=== PATIENT | male | born 1950 | race Caucasian/White ===

== ENCOUNTER 2018-06-19 23:50 | Inpatient (IN) | payer MEDICARE ==
[~2018-06-19] VITALS: Ht 188 cm; Wt 68.8 kg
--- NOTE | ~2018-06-19 | OP ---
PATIENT NAME: LYNN LOPEZ MEDICAL RECORD: [id number] :54 LOCATION:D. 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 PROCEDURE: Incisional biopsy of an infected fungating penile mass. SURGEON: Jossie Davis MD MANAGER CALL CENTER: None. BLOOD LOSS: Minimal. ANESTHESIA: General. COMPLICATIONS: None. The risks, possible complications, and alternatives to procedure were explained to the patient. He elects to proceed. 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 Dr. Ziegler is currently out of town. I want to get an incisional biopsy so that Dr. Ziegler can develop a plan of care for this patient when he returns. OPERATIVE COURSE: The patient was conveyed to the operating room electively on 06/24/2018. General anesthesia was induced by the anesthesia staff. The perineum was sterilely prepped and draped. We used the micro filter suction as well as the special laser masks during this procedure. There was a rind over this fungating mass. When this rind was compressed, there were dozens of small pustules that ruptured. This rind then pulled off. Underneath that there was a fleshy material that appeared to be a malignancy. I took 10 blade and then shaved off a portion of this mass. Hemostasis was achieved with electrocautery as well as with a topical hemostatic agent. A sterile dressing was applied. The patient was then extubated and conveyed to the post-anesthesia care unit where he was in stable condition. TRANSINT:[id number] Voice Confirmation ID: [id number] DOCUMENT ID: [id number] JOSSIE DAVIS MD at 1708 CC: BERTO PANG MD, JOSSIE ZIEGLER MD and Tabatha MACK [phone] DICTATION DATE: 06/24/18 1401 LINUX NETWORK ADMINISTRATOR: 06/24/18 1415 DIS IN 06/26/18 [id number] [place] [address]
--- NOTE | ~2018-06-19 | MORECARE ---
CASE MANAGEMENT DISCHARGE SUMMARY PATIENT: LYNN LOPEZ UNIT: [id number] ADM DATE: 06/20/18 AGE: 68 : 54 SEX: M ROOM/BED: D.2109 AUTHOR: CHETANDOC PHYSICIAN: REFERRING PHYSICIAN: BERTO PANG MD DATE OF SERVICE: 06/23/18 Discharge Plan Patient Name: LYNN LOPEZ Facility: [facility]:[place] : 1950 Planned Disposition: Home Anticipated Discharge Date: 06/23/18 Discharge Date: Expected LOS: 3 Initial Reviewer: [email or web address] Initial Review Date: 06/22/2018 Generated: 06/23/18 3:40 pm Comments DCP- Discharge Planning Updated by [id number]: Audrey Vigil on 06/23/18 1:[address] Patient Name: LYNN LOPEZ Admission Status: Elective Accout number: [id number] Admission Date: 06-20-2018 : 1950 Admission Diagnosis:HEMATURIA, UNSPECIFIED Attending: BERTO PANG Current LOS: 3 Anticipated DC Date: 06-23-2018 Planned Disposition: Home Primary Insurance: MEDICARE A & B Discharge Planning Comments: CM SPOKE WITH PATIENT ABOUT HH FOR MANAGEMENT OF REYNA CATH. PATIENT CHOSE [facility] IN [place]. DOCUMENTS FAXED TO LOKI AT [employer] AT [phone]. WHEN PATIENT IS DISCHARGED, NURSE OR CM TO CALL [facility] AT [phone] TO LET THEM KNOW. ALSO, FAX DC DOCUMENTS AND DC SUMMARY TO [employer]. Abstract Writer: Audrey Vigil DCP- Discharge Planning Updated by [email or web address]: Leonel Nuñez on 06/22/18 10:[address] Patient Name: LYNN LOPEZ Admission Status: Elective Accout number: [id number] Admission Date: 06-20-2018 : 1950 Admission Diagnosis: Attending: BERTO PANG Current LOS: 2 Anticipated DC Date: 06-23-2018 Planned Disposition: Home Primary Insurance: MEDICARE A & B Discharge Planning Comments: * Is the patient Alert and Oriented? Yes 0 * How many steps to enter\exit or inside your home? 2 0 * PCP DR. JONES IN [place] 0 * Pharmacy [facility] 0 * Preadmission Environment Home Alone 0 * ADLs Independent 0 * Equipment Cane 0 * Other Equipment NO MEDICAL EQUIPMENT PROVIDER PREFERENCE 0 * List name and contact numbers for known caregivers / representatives who currently or will assist patient after discharge: COLIN LOPEZ, EX , CALEB LOPEZ, SON, 0 * Verbal permission to speak to the caregivers and representatives has been obtained from the patient. N/A 0 * Community resources currently utilized None 0 * Please name any agencies selected above. NONE 0 * Additional services required to return to the preadmission environment? No 0 * Can the patient safely return to the preadmission environment? Yes 0 * Has this patient been hospitalized within the prior 30 days at any hospital? No 0 CM MET WITH PT IN ROOM TO DISCUSS DISCHARGE PLANNING AND NEEDS. PT REPORTS LIVING AT HOME INDEPENDENTLY AND ALONE. PT HAS A HAND MADE WOOD CANE WITH NO MEDICAL EQUIPMENT PROVIDER PREFERENCE. PT HAS NO OUTSIDE SERVICES ASSISTING IN THE HOME. CM DISCUSSED AVAILABILITY OF HOME HEALTH, REHAB SERVICES AND MEDICAL EQUIPMENT. PT DENIES DISCHARGE NEEDS, REPORTS HIS SON WILL PICK HIM UP FOR DISCHARGE HOME. IMPORTANT MESSAGE FROM MEDICARE PROVIDED AND EXPLAINED. PT PLANS TO DISCHARGE HOME ALONE. SON TO TRANSPORT HOME. PT DENIES DISCHARGE NEEDS AT THIS TIME. CM TO FOLLOW AND ASSIST IF NEEDED. Abstract Writer: [facility] Nu[facility]ez [facility] - [facility]charge Planning Initial Assessment Updated by [email or web address]: Leonel Nuñez on 06/22/18 11:25 am * Is the patient Alert and Oriented? Yes * How many steps to enter\exit or inside your home? * PCP DR. JONES IN [place] * Pharmacy [facility] * Preadmission Environment Home Alone * ADLs Independent * Equipment Cane * Other Equipment NO MEDICAL EQUIPMENT PROVIDER PREFERENCE * List name and contact numbers for known caregivers / representatives who currently or will assist patient after discharge: COLIN LOPEZ, EX , CALEB LOPEZ, SON, * Verbal permission to speak to the caregivers and representatives has been obtained from the patient. N/A * Community resources currently utilized None * Please name any agencies selected above. NONE * Additional services required to return to the preadmission environment? No * Can the patient safely return to the preadmission environment? Yes * Has this patient been hospitalized within the prior 30 days at any hospital? No Coverage Notice Reviewer: [id number] - Leonel Nuñez Notice Issued Date-Time: 06/22/2018 10:25 Notice Type: IM Discharge Notice Notice Delivered To: Patient Relationship to Patient: Pricing Coordinator Name: Delivery Method: HAND - Hand Delivered Steph Days: Prior Verbal Notification: Recipient Understood Notice: Yes Recipient Signature: Yes Med Rec Note Co-signed by Attending: Coverage Notice Comment: Reviewer: [id number] - Audrey Vigil Notice Issued Date-Time: 06/23/2018 14:04 Notice Type: Patient Choice Letter Notice Delivered To: Patient Relationship to Patient: Self Pricing Coordinator Name: Delivery Method: PHONE - Phone Steph Days: Prior Verbal Notification: Recipient Understood Notice: Yes Recipient Signature: Med Rec Note Co-signed by Attending: Coverage Notice Comment: PATIENT CHOSE [facility] IN [place], PHONE [phone] FAX: [phone] ATTN: LOKI Francis DP export: 06/23/18 1:21 Patient Name: LYNN LOPEZ Page [id number] at 1441 All edits/amendments must be made on the electronic document DICTATION DATE: 06/23/18 1440 UPPER INSPECTOR: LEORA 06/23/18 1440 RPT#: [id number] DC DATE: STATUS: ADM IN [facility] [address] [place] [address] END OF REPORT
--- NOTE | ~2018-06-19 | MORECARE ---
CASE MANAGEMENT DISCHARGE SUMMARY PATIENT: LYNN LOPEZ UNIT: [id number] ADM DATE: 06/20/18 AGE: 68 : 54 SEX: M ROOM/BED: D.2109 AUTHOR: CHETANDOC PHYSICIAN: REFERRING PHYSICIAN: BERTO PANG MD DATE OF SERVICE: 06/23/18 Discharge Plan Patient Name: LYNN LOPEZ Facility: [facility]:[place] : 1950 Planned Disposition: Home Anticipated Discharge Date: 06/23/18 Discharge Date: Expected LOS: 3 Initial Reviewer: [email or web address] Initial Review Date: 06/22/2018 Generated: 06/23/18 3:21 pm Comments DCP- Discharge Planning Updated by [email or web address]: Leonel Nuñez on 06/22/18 10:[address] Patient Name: LYNN LOPEZ Admission Status: Elective Accout number: [id number] Admission Date: 06-20-2018 : 1950 Admission Diagnosis: Attending: BERTO PANG Current LOS: 2 Anticipated DC Date: 06-23-2018 Planned Disposition: Home Primary Insurance: MEDICARE A & B Discharge Planning Comments: * Is the patient Alert and Oriented? Yes 0 * How many steps to enter\exit or inside your home? 2 0 * PCP DR. JONES IN [place] 0 * Pharmacy [facility] 0 * Preadmission Environment Home Alone 0 * ADLs Independent 0 * Equipment Cane 0 * Other Equipment NO MEDICAL EQUIPMENT PROVIDER PREFERENCE 0 * List name and contact numbers for known caregivers / representatives who currently or will assist patient after discharge: COLIN LOPEZ, EX , CALEB LOPEZ, SON, 0 * Verbal permission to speak to the caregivers and representatives has been obtained from the patient. N/A 0 * Community resources currently utilized None 0 * Please name any agencies selected above. NONE 0 * Additional services required to return to the preadmission environment? No 0 * Can the patient safely return to the preadmission environment? Yes 0 * Has this patient been hospitalized within the prior 30 days at any hospital? No 0 CM MET WITH PT IN ROOM TO DISCUSS DISCHARGE PLANNING AND NEEDS. PT REPORTS LIVING AT HOME INDEPENDENTLY AND ALONE. PT HAS A HAND MADE WOOD CANE WITH NO MEDICAL EQUIPMENT PROVIDER PREFERENCE. PT HAS NO OUTSIDE SERVICES ASSISTING IN THE HOME. CM DISCUSSED AVAILABILITY OF HOME HEALTH, REHAB SERVICES AND MEDICAL EQUIPMENT. PT DENIES DISCHARGE NEEDS, REPORTS HIS SON WILL PICK HIM UP FOR DISCHARGE HOME. IMPORTANT MESSAGE FROM MEDICARE PROVIDED AND EXPLAINED. PT PLANS TO DISCHARGE HOME ALONE. SON TO TRANSPORT HOME. PT DENIES DISCHARGE NEEDS AT THIS TIME. CM TO FOLLOW AND ASSIST IF NEEDED. Caustic Operator: Leonel Nuñez [facility]CP[facility] - Discharge Planning Initial Assessment Updated by [id number]: Leonel Nuñez on 06/22/18 11:25 am * Is the patient Alert and Oriented? Yes * How many steps to enter\exit or inside your home? * PCP DR. JONES IN [place] * Pharmacy [facility] * Preadmission Environment Home Alone * ADLs Independent * Equipment Cane * Other Equipment NO MEDICAL EQUIPMENT PROVIDER PREFERENCE * List name and contact numbers for known caregivers / representatives who currently or will assist patient after discharge: COLIN LOPEZ, EX , CALEB LOPEZ, SON, * Verbal permission to speak to the caregivers and representatives has been obtained from the patient. N/A * Community resources currently utilized None * Please name any agencies selected above. NONE * Additional services required to return to the preadmission environment? No * Can the patient safely return to the preadmission environment? Yes * Has this patient been hospitalized within the prior 30 days at any hospital? No External Providers External Provider: OTHER-OTHER Next Contact Date: Service Request Date: Service Type: Resolution: Reviewer: Comments: Coverage Notice Reviewer: [id number] - Leonel Nuñez Notice Issued Date-Time: 06/22/2018 10:25 Notice Type: IM Discharge Notice Notice Delivered To: Patient Relationship to Patient: Corrosion Control Fitter Name: Delivery Method: HAND - Hand Delivered Steph Days: Prior Verbal Notification: Recipient Understood Notice: Yes Recipient Signature: Yes Med Rec Note Co-signed by Attending: Coverage Notice Comment: Reviewer: [id number] - Audrey Vigil Notice Issued Date-Time: 06/23/2018 14:04 Notice Type: Patient Choice Letter Notice Delivered To: Patient Relationship to Patient: Self Corrosion Control Fitter Name: Delivery Method: PHONE - Phone Steph Days: Prior Verbal Notification: Recipient Understood Notice: Yes Recipient Signature: Med Rec Note Co-signed by Attending: Coverage Notice Comment: PATIENT CHOSE [facility] IN [place], PHONE [phone] FAX: [phone] ATTN: LOKI GIBSON export: 06/22/18 10:31 Patient Name: LYNN LOPEZ Page [id number] at 1422 All edits/amendments must be made on the electronic document DICTATION DATE: 06/23/181420 STAMPING DIE MAKER: LEORA 06/23/181420 RPT#: [id number] DC DATE: STATUS: ADM IN [facility] [address] [place] [address] END OF REPORT
--- NOTE | ~2018-06-19 | MORECARE ---
CASE MANAGEMENT DISCHARGE SUMMARY PATIENT: LYNN LOPEZ UNIT: [id number] ADM DATE: 06/20/18 AGE: 68 : 54 SEX: M ROOM/BED: D.2109 AUTHOR: CHETANDOC PHYSICIAN: REFERRING PHYSICIAN: BERTO PANG MD DATE OF SERVICE: 06/23/18 Discharge Plan Patient Name: LYNN LOPEZ Facility: [facility]:[place] : 1950 Planned Disposition: Home with Home Health Anticipated Discharge Date: 06/23/18 Discharge Date: Expected LOS: 3 Initial Reviewer: [email or web address] Initial Review Date: 06/22/2018 Generated: 06/23/18 3:50 pm Comments DCP- Discharge Planning Updated by [id number]: Audrey Vigil on 06/23/18 1:[address] Patient Name: LYNN LOPEZ Admission Status: Elective Accout number: [id number] Admission Date: 06-20-2018 : 1950 Admission Diagnosis:HEMATURIA, UNSPECIFIED Attending: BERTO PANG Current LOS: 3 Anticipated DC Date: 06-23-2018 Planned Disposition: Home Primary Insurance: MEDICARE A & B Discharge Planning Comments: CM SPOKE WITH PATIENT ABOUT HH FOR MANAGEMENT OF REYNA CATH. PATIENT CHOSE [facility] HH IN [place]. DOCUMENTS FAXED TO LOKI AT [employer] AT [phone]. WHEN PATIENT IS DISCHARGED, NURSE OR CM TO CALL [facility] AT [phone] TO LET THEM KNOW. ALSO, FAX DC DOCUMENTS AND DC SUMMARY TO [employer]. Drum Drier: Audrey Vigil DCP- Discharge Planning Updated by [id number]: Leonel Nuñez on 06/22/18 10:[address] Patient Name: LYNN LOPEZ Admission Status: Elective Accout number: [id number] Admission Date: 06-20-2018 : 1950 Admission Diagnosis: Attending: BERTO PANG Current LOS: 2 Anticipated DC Date: 06-23-2018 Planned Disposition: Home Primary Insurance: MEDICARE A & B Discharge Planning Comments: * Is the patient Alert and Oriented? Yes 0 * How many steps to enter\exit or inside your home? 2 0 * PCP DR. JONES IN [place] 0 * Pharmacy [facility] 0 * Preadmission Environment Home Alone 0 * ADLs Independent 0 * Equipment Cane 0 * Other Equipment NO MEDICAL EQUIPMENT PROVIDER PREFERENCE 0 * List name and contact numbers for known caregivers / representatives who currently or will assist patient after discharge: COLIN LOPEZ, EX , CALEB LOPEZ, SON, 0 * Verbal permission to speak to the caregivers and representatives has been obtained from the patient. N/A 0 * Community resources currently utilized None 0 * Please name any agencies selected above. NONE 0 * Additional services required to return to the preadmission environment? No 0 * Can the patient safely return to the preadmission environment? Yes 0 * Has this patient been hospitalized within the prior 30 days at any hospital? No 0 CM MET WITH PT IN ROOM TO DISCUSS DISCHARGE PLANNING AND NEEDS. PT REPORTS LIVING AT HOME INDEPENDENTLY AND ALONE. PT HAS A HAND MADE WOOD CANE WITH NO MEDICAL EQUIPMENT PROVIDER PREFERENCE. PT HAS NO OUTSIDE SERVICES ASSISTING IN THE HOME. CM DISCUSSED AVAILABILITY OF HOME HEALTH, REHAB SERVICES AND MEDICAL EQUIPMENT. PT DENIES DISCHARGE NEEDS, REPORTS HIS SON WILL PICK HIM UP FOR DISCHARGE HOME. IMPORTANT MESSAGE FROM MEDICARE PROVIDED AND EXPLAINED. PT PLANS TO DISCHARGE HOME ALONE. SON TO TRANSPORT HOME. PT DENIES DISCHARGE NEEDS AT THIS TIME. CM TO FOLLOW AND ASSIST IF NEEDED. Drum Drier: [facility] Initial Assessment Updated by [email or web address]: Leonel Nuñez on 06/22/18 11:25 am * Is the patient Alert and Oriented? Yes * How many steps to enter\exit or inside your home? * PCP DR[facility] JONES IN [place] * [facility] * Preadmission Environment Home Alone * ADLs Independent * Equipment Cane * Other Equipment NO MEDICAL EQUIPMENT PROVIDER PREFERENCE * List name and contact numbers for known caregivers / representatives who currently or will assist patient after discharge: COLIN LOPEZ, EX , CALEB LOPEZ, SON, * Verbal permission to speak to the caregivers and representatives has been obtained from the patient. N/A * Community resources currently utilized None * Please name any agencies selected above. NONE * Additional services required to return to the preadmission environment? No * Can the patient safely return to the preadmission environment? Yes * Has this patient been hospitalized within the prior 30 days at any hospital? No Coverage Notice Reviewer: [id number] - Leonel Nuñez Notice Issued Date-Time: 06/22/2018 10:25 Notice Type: IM Discharge Notice Notice Delivered To: Patient Relationship to Patient: Mortgage Loan Processor Name: Delivery Method: HAND - Hand Delivered Steph Days: Prior Verbal Notification: Recipient Understood Notice: Yes Recipient Signature: Yes Med Rec Note Co-signed by Attending: Coverage Notice Comment: Reviewer: [id number] - Audrey Vigil Notice Issued Date-Time: 06/23/2018 14:04 Notice Type: Patient Choice Letter Notice Delivered To: Patient Relationship to Patient: Self Mortgage Loan Processor Name: Delivery Method: PHONE - Phone Steph Days: Prior Verbal Notification: Recipient Understood Notice: Yes Recipient Signature: Med Rec Note Co-signed by Attending: Coverage Notice Comment: PATIENT CHOSE [facility] IN [place], PHONE [phone] FAX: [phone] ATTN: LOKI Francis DP export: 06/23/18 1:21 Patient Name: LYNN LOPEZ Page [id number] at 1450 All edits/amendments must be made on the electronic document DICTATION DATE: 06/23/18 1450 DISPATCHER RELAY: LEORA 06/23/18 1450 RPT#: [id number] DC DATE: STATUS: ADM IN [facility] [address] [place] [address] END OF REPORT
--- NOTE | ~2018-06-19 | MORECARE ---
CASE MANAGEMENT DISCHARGE SUMMARY PATIENT: LYNN LOPEZ UNIT: [id number] ADM DATE: 06/20/18 AGE: 68 : 52 SEX: M ROOM/BED: D.2106 AUTHOR: EMY BENTON PHYSICIAN: REFERRING PHYSICIAN: BERTO PANG MD DATE OF SERVICE: 06/26/18 Discharge Plan Patient Name: LYNN LOPEZ Facility: [facility]:[place] : 1950 Planned Disposition: Home with Home Health Anticipated Discharge Date: 06/26/18 Discharge Date: Expected LOS: 6 Initial Reviewer: [email or web address] Initial Review Date: 06/22/2018 Generated: 06/26/18 3:19 pm Comments DCP- Discharge Planning Updated by [id number]: Leonel Nuñez on 06/26/18 1:[address] Patient Name: LYNN LOPEZ Encounter No: [id number] : 1950 Primary Insurance: MEDICARE A & B Anticipated DC Date: 06-26-2018 Planned Disposition: Home with Home Health External Planned Provider: [facility] DCP follow-up note: CM RECEIVED DISCHARGE ORDER, MET WITH PT IN ROOM TO DISCUSS DISCHARGE NEEDS AND PLANNING. CM DISCUSSED AVAILABILITY OF HOME HEALTH, REHAB SERVICES AND MEDICAL EQUIPMENT. PT DENIES DISCHARGE NEEDS OTHER THAN HOME HEALTH DISCUSSED LAST WEEK. PT REPORTS HIS FRIEND IS HERE NOW TO TRANSPORT HOME, PT WANTS TO LEAVE NOW, NURSE NOTIFIED. IMPORTANT MESSAGE FROM MEDICARE PROVIDED AND EXPLAINED. CM CALLED [facility] IN [place], , SPOKE TO LOKI AND CONFIRMED PT IS DISCHARGING HOME TODAY, [facility] TO FOLLOW UP TOMORROW. CM FAXED DISCHARGE INFORMATION TO [facility] AT [phone]. PLATING EQUIPMENT TENDER NURSE NOTIFIED. SRINIVASAN Saenz DCP- Discharge Planning Updated by [id number]: Audrey Vigil on 06/23/18 1:[address] Patient Name: LYNN LOPEZ Admission Status: Elective Accout number: [id number] Admission Date: 06-20-2018 : 1950 Admission Diagnosis:HEMATURIA, UNSPECIFIED Attending: BERTO PANG Current LOS: 3 Anticipated DC Date: 06-23-2018 Planned Disposition: Home Primary Insurance: MEDICARE A & B Discharge Planning Comments: CM SPOKE WITH PATIENT ABOUT HH FOR MANAGEMENT OF REYNA CATH. PATIENT CHOSE [facility] IN [place]. DOCUMENTS FAXED TO LOKI AT [employer] AT [phone]. WHEN PATIENT IS DISCHARGED, NURSE OR CM TO CALL CHRISTINA AT [phone] TO LET THEM KNOW. ALSO, FAX DC DOCUMENTS AND DC SUMMARY TO [employer]. Hand Bander: Audrey Vigil DCP- Discharge Planning Updated by [id number]: Leonel Nuñez on 06/22/18 10:[address] Patient Name: LYNN LOPEZ Admission Status: Elective Accout number: [id number] Admission Date: 06-20-2018 : 1950 Admission Diagnosis: Attending: BERTO PANG Current LOS: 2 Anticipated DC Date: 06-23-2018 Planned Disposition: Home Primary Insurance: MEDICARE A & B Discharge Planning Comments: * Is the patient Alert and Oriented? Yes 0 * How many steps to enter\exit or inside your home? 2 0 * PCP DR. JONES IN [place] 0 * Pharmacy [facility] 0 * Preadmission Environment Home Alone 0 * ADLs Independent 0 * Equipment Cane 0 * Other Equipment NO MEDICAL EQUIPMENT PROVIDER PREFERENCE 0 * List name and contact numbers for known caregivers / representatives who currently or will assist patient after discharge: COLIN LOPEZ, EX , CALEB LOPEZ, SON, 0 * Verbal permission to speak to the caregivers and representatives has been obtained from the patient. N/A 0 * Community resources currently utilized None 0 * Please name any agencies selected above. NONE 0 * Additional services required to return to the preadmission environment? No 0 * Can the patient safely return to the preadmission environment? Yes 0 * Has this patient been hospitalized within the prior 30 days at any hospital? No 0 CM MET WITH PT IN ROOM TO DISCUSS DISCHARGE PLANNING AND NEEDS. PT REPORTS LIVING AT HOME INDEPENDENTLY AND ALONE. PT HAS A HAND MADE WOOD CANE WITH NO MEDICAL EQUIPMENT PROVIDER PREFERENCE. PT HAS NO OUTSIDE SERVICES ASSISTING IN THE HOME. CM DISCUSSED AVAILABILITY OF HOME HEALTH, REHAB SERVICES AND MEDICAL EQUIPMENT. PT DENIES DISCHARGE NEEDS, REPORTS HIS SON WILL PICK HIM UP FOR DISCHARGE HOME. IMPORTANT MESSAGE FROM MEDICARE PROVIDED AND EXPLAINED. PT PLANS TO DISCHARGE HOME ALONE. SON TO TRANSPORT HOME. PT DENIES DISCHARGE NEEDS AT THIS TIME. CM TO FOLLOW AND ASSIST IF NEEDED. Hand Bander: Leonel Nuñez DCPIA - Discharge Planning Initial Assessment Updated by [email or web address]: Leonel Nuñez on 06/22/18 11:25 am * Is the patient Alert and Oriented? Yes * How many steps to enter\exit or inside your home? * PCP DR. JONES IN [place] * Pharmacy [facility] * Preadmission Environment Home Alone * ADLs Independent * Equipment Cane * Other Equipment NO MEDICAL EQUIPMENT PROVIDER PREFERENCE * List name and contact numbers for known caregivers / representatives who currently or will assist patient after discharge: COLIN LOPEZ, EX , CALEB LOPEZ, SON, * Verbal permission to speak to the caregivers and representatives has been obtained from the patient. N/A * Community resources currently utilized None * Please name any agencies selected above. NONE * Additional services required to return to the preadmission environment? No * Can the patient safely return to the preadmission environment? Yes * Has this patient been hospitalized within the prior 30 days at any hospital? No Coverage Notice Reviewer: [id number] Alejandrina Nuñez Notice Issued Date-Time: 06/22/2018 10:25 Notice Type: IM Discharge Notice Notice Delivered To: Patient Relationship to Patient: Altitude Chamber Technician Name: Delivery Method: HAND - Hand Delivered Steph Days: Prior Verbal Notification: Recipient Understood Notice: Yes Recipient Signature: Yes Med Rec Note Co-signed by Attending: Coverage Notice Comment: Reviewer: [id number] Alejandrina Vigil Notice Issued Date-Time: 06/23/2018 14:04 Notice Type: Patient Choice Letter Notice Delivered To: Patient Relationship to Patient: Self Altitude Chamber Technician Name: Delivery Method: PHONE - Phone Steph Days: Prior Verbal Notification: Recipient Understood Notice: Yes Recipient Signature: Med Rec Note Co-signed by Attending: Coverage Notice Comment: PATIENT CHOSE [facility] IN [place], PHONE [phone] FAX: [phone] ATTN: LOKI Reviewer: [email or web address] Alejandrina Nuñez Notice Issued Date-Time: 06/26/2018 12:25 Notice Type: IM Discharge Notice Notice Delivered To: Patient Relationship to Patient: Altitude Chamber Technician Name: Delivery Method: HAND - Hand Delivered Steph Days: Prior Verbal Notification: Recipient Understood Notice: Yes Recipient Signature: Med Rec Note Co-signed by Attending: Coverage Notice Comment: PT NOT WASHED HANDS, UNABLE TO SIGN Last DP export: 06/26/18 1:11 Patient Name: LYNN LOPEZ Page [id number] at 1419 All edits/amendments must be made on the electronic document DICTATION DATE: 06/26/181417 INSURANCE PRODUCER: LEORA 06/26/181417 RPT#: [id number] DC DATE: STATUS: ADM IN [facility] [address] [place] [address] END OF REPORT
--- NOTE | ~2018-06-19 | MORECARE ---
CASE MANAGEMENT DISCHARGE SUMMARY PATIENT: LYNN LOPEZ UNIT: [id number] ADM DATE: 06/20/18 AGE: 68 : 52 SEX: M ROOM/BED: D.2109 AUTHOR: CHETANDOC PHYSICIAN: REFERRING PHYSICIAN: BERTO PANG MD DATE OF SERVICE: 06/26/18 Discharge Plan Patient Name: LYNN LOPEZ Facility: [facility]:[place] : 1950 Planned Disposition: Home with Home Health Anticipated Discharge Date: 06/26/18 Discharge Date: Expected LOS: 6 Initial Reviewer: [email or web address] Initial Review Date: 06/22/2018 Generated: 06/26/18 3:11 pm Comments DCP- Discharge Planning Updated by [email or web address]: Audrey Vigil on 06/23/18 1:[address] Patient Name: LYNN LOPEZ Admission Status: Elective Accout number: [id number] Admission Date: 06-20-2018 : 1950 Admission Diagnosis:HEMATURIA, UNSPECIFIED Attending: BERTO PANG Current LOS: 3 Anticipated DC Date: 06-23-2018 Planned Disposition: Home Primary Insurance: MEDICARE A & B Discharge Planning Comments: CM SPOKE WITH PATIENT ABOUT HH FOR MANAGEMENT OF REYNA CATH. PATIENT CHOSE [facility] HH IN [place]. DOCUMENTS FAXED TO LOKI AT [employer] AT [phone]. WHEN PATIENT IS DISCHARGED, NURSE OR CM TO CALL [facility] AT [phone] TO LET THEM KNOW. ALSO, FAX DC DOCUMENTS AND DC SUMMARY TO [employer]. Carpentry Professional: Audrey Vigil DCP- Discharge Planning Updated by [id number]: Leonel Nuñez on 06/22/18 10:[address] Patient Name: LYNN LOPEZ Admission Status: Elective Accout number: [id number] Admission Date: 06-20-2018 : 1950 Admission Diagnosis: Attending: BERTO PANG Current LOS: 2 Anticipated DC Date: 06-23-2018 Planned Disposition: Home Primary Insurance: MEDICARE A & B Discharge Planning Comments: * Is the patient Alert and Oriented? Yes 0 * How many steps to enter\exit or inside your home? 2 0 * PCP DR[facility] JONES IN [place] 0 * Pharmacy [facility] 0 * Preadmission Environment Home Alone 0 * ADLs Independent 0 * Equipment Cane 0 * Other Equipment NO MEDICAL EQUIPMENT PROVIDER PREFERENCE 0 * List name and contact numbers for known caregivers / representatives who currently or will assist patient after discharge: COLIN LOPEZ, EX , CALEB LOPEZ, SON, 0 * Verbal permission to speak to the caregivers and representatives has been obtained from the patient. N/A 0 * Community resources currently utilized None 0 * Please name any agencies selected above. NONE 0 * Additional services required to return to the preadmission environment? No 0 * Can the patient safely return to the preadmission environment? Yes 0 * Has this patient been hospitalized within the prior 30 days at any hospital? No 0 CM MET WITH PT IN ROOM TO DISCUSS DISCHARGE PLANNING AND NEEDS. PT REPORTS LIVING AT HOME INDEPENDENTLY AND ALONE. PT HAS A HAND MADE WOOD CANE WITH NO MEDICAL EQUIPMENT PROVIDER PREFERENCE. PT HAS NO OUTSIDE SERVICES ASSISTING IN THE HOME. CM DISCUSSED AVAILABILITY OF HOME HEALTH, REHAB SERVICES AND MEDICAL EQUIPMENT. PT DENIES DISCHARGE NEEDS, REPORTS HIS SON WILL PICK HIM UP FOR DISCHARGE HOME. IMPORTANT MESSAGE FROM MEDICARE PROVIDED AND EXPLAINED. PT PLANS TO DISCHARGE HOME ALONE. SON TO TRANSPORT HOME. PT DENIES DISCHARGE NEEDS AT THIS TIME. CM TO FOLLOW AND ASSIST IF NEEDED. Carpentry Professional: Leonel Nuñez [facility] - Discharge Planning Initial Assessment Updated by [email or web address]: Leonel Nuñez on 06/22/18 11:25 am * Is the patient Alert and Oriented? Yes * How many steps to enter\exit or inside your home? * PCP DR[facility] JONES IN [place] * [facility] * Preadmission Environment Home Alone * ADLs Independent * Equipment Cane * Other Equipment NO MEDICAL EQUIPMENT PROVIDER PREFERENCE * List name and contact numbers for known caregivers / representatives who currently or will assist patient after discharge: COLIN LOPEZ, EX , CALEB LOPEZ, SON, * Verbal permission to speak to the caregivers and representatives has been obtained from the patient. N/A * Community resources currently utilized None * Please name any agencies selected above. NONE * Additional services required to return to the preadmission environment? No * Can the patient safely return to the preadmission environment? Yes * Has this patient been hospitalized within the prior 30 days at any hospital? No Coverage Notice Reviewer: [id number] - Leonel Nuñez Notice Issued Date-Time: 06/22/2018 10:25 Notice Type: IM Discharge Notice Notice Delivered To: Patient Relationship to Patient: Social Worker Assistant Name: Delivery Method: HAND - Hand Delivered Steph Days: Prior Verbal Notification: Recipient Understood Notice: Yes Recipient Signature: Yes Med Rec Note Co-signed by Attending: Coverage Notice Comment: Reviewer: [id number] - Audrey Vigil Notice Issued Date-Time: 06/23/2018 14:04 Notice Type: Patient Choice Letter Notice Delivered To: Patient Relationship to Patient: Self Social Worker Assistant Name: Delivery Method: PHONE - Phone Steph Days: Prior Verbal Notification: Recipient Understood Notice: Yes Recipient Signature: Med Rec Note Co-signed by Attending: Coverage Notice Comment: PATIENT CHOSE [facility] [place], PHONE [phone] FAX: [phone] ATTN: LOKI Francis DP export: 06/23/18 1:50 Patient Name: LYNN LOPEZ Page 23673 at 1411 All edits/amendments must be made on the electronic document DICTATION DATE: 06/26/18 1410 FARM EQUIPMENT MECHANIC APPRENTICE: LEORA 06/26/18 1410 RPT#: [id number] DC DATE: STATUS: ADM IN [facility] [address] [place] [address] END OF REPORT
[2018-06-20] VITALS: BP 143/75
[2018-06-20] MEDS ORDERED: DILAUDID2 MG PO (00:24)
[2018-06-20] MEDS ORDERED: VALIUM 2 MG TAB2 MG PO (00:24)
[2018-06-20] MEDS ORDERED: IBUPROFEN200 MG PO (00:28)
[2018-06-20 01:52] VITALS: BMI 20.2
[2018-06-20 03:20] LABS: APPEARANCE CLOUDY (CLEAR); BILIRUBIN NEGATIVE (NEGATIVE); COLOR RED (YELLOW); GLUCOSE NEGATIVE (NEGATIVE); KETONE SMALL mg/dL (NEGATIVE); NITRITE NEGATIVE (NEGATIVE); PROTEIN 2+ mg/dL (NEGATIVE); SPECIFIC GRAVITY 1.015 (1.005-1.020); UROBILINOGEN NORMAL (NORMAL)
[2018-06-20 03:22] LABS: BACTERIA NONE SEEN /hpf (NONE SEEN); EPITHELIAL CELLS NSEEN /hpf (0-5); RED CELLS - URINE >50 /hpf (0-5); WHITE CELLS - URINE NSEEN /hpf (0-5)
[2018-06-20 05:24] LABS: BASOPHILS 0.3 % (0-2); HEMATOCRIT 31.4 % (42.0-54.0); HEMOGLOBIN 10.7 g/dL (13.5-17.5); IMMATURE GRANULOCYTES 0.2 % (0-5); LYMPHOCYTES 5.8 % (15-50); MCH 29.7 pg (26.0-34.0); MCHC 34.1 g/dL (31.0-37.0); MCV 87.2 fL (80.0-100.0); MEAN PLATELET VOLUME 10.1 fL (7.4-10.4); MONOCYTES 10.3 % (2-11); NEUTROPHILS 78.4 % (40-80); PLATELET COUNT 250 10x3/uL (130-400); RDW 13.9 % (11.5-14.5); WBC 6.4 10x3/uL (4.8-10.8)
[2018-06-20 05:55] VITALS: BP 129/70
[2018-06-20 05:56] LABS: BILIRUBIN - TOTAL 0.32 mg/dL (0.2-1.3); CALCIUM 8.8 mg/dL (8.5-10.1); CARBON DIOXIDE 24.3 mmol/L (21.0-32.0); CREATININE - SERUM 11.3 mg/dL (0.6-1.3); MAGNESIUM - SERUM 2.1 mg/dL (1.8-2.4); PHOSPHOROUS 5.1 mg/dL (2.5-4.9); POTASSIUM - SERUM 5.3 mmol/L (3.5-5.1); PROTEIN - SERUM 6.7 g/dL (6.4-8.2)
[2018-06-20 07:52] VITALS: BP 154/78
[2018-06-20 10:49] VITALS: BP 137/79
[2018-06-20 14:44] VITALS: BP 141/86
[2018-06-20 20:24] VITALS: BP 134/81
[2018-06-21] VITALS: BP 134/78
[2018-06-21 06:04] LABS: BASOPHILS 0.3 % (0-2); EOSINOPHILS 4.5 % (0-7); HEMOGLOBIN 10.7 g/dL (13.5-17.5); IMMATURE GRANULOCYTES 0.2 % (0-5); LYMPHOCYTES 11.3 % (15-50); MCH 29.7 pg (26.0-34.0); MCHC 33.4 g/dL (31.0-37.0); MCV 88.9 fL (80.0-100.0); MEAN PLATELET VOLUME 10.2 fL (7.4-10.4); MONOCYTES 13.3 % (2-11); NEUTROPHILS 70.4 % (40-80); PLATELET COUNT 258 10x3/uL (130-400); RDW 13.7 % (11.5-14.5); WBC 5.7 10x3/uL (4.8-10.8)
[2018-06-21 06:19] VITALS: BP 149/78
[2018-06-21 06:38] LABS: ANION GAP 17.4 mmol/L (8-16); CALCIUM 8.4 mg/dL (8.5-10.1); CARBON DIOXIDE 23.8 mmol/L (21.0-32.0); CREATININE - SERUM 3.1 mg/dL (0.6-1.3); POTASSIUM - SERUM 4.2 mmol/L (3.5-5.1)
[2018-06-21 09:30] VITALS: BP 143/75
[2018-06-21 19:02] VITALS: BP 124/75
[2018-06-21 20:00] VITALS: BP 139/82
[2018-06-22 00:46] VITALS: BP 136/68
[2018-06-22 04:00] VITALS: BP 140/77
[2018-06-22 06:25] LABS: BASOPHILS 0.4 % (0-2); EOSINOPHILS 6.8 % (0-7); HEMATOCRIT 32.8 % (42.0-54.0); HEMOGLOBIN 11.1 g/dL (13.5-17.5); IMMATURE GRANULOCYTES 0.5 % (0-5); LYMPHOCYTES 9.6 % (15-50); MCH 29.7 pg (26.0-34.0); MCHC 33.8 g/dL (31.0-37.0); MCV 87.7 fL (80.0-100.0); MEAN PLATELET VOLUME 10.7 fL (7.4-10.4); MONOCYTES 14.1 % (2-11); NEUTROPHILS 68.6 % (40-80); PLATELET COUNT 163 10x3/uL (130-400); RBC 3.74 10x6/uL (4.20-6.10); RDW 13.5 % (11.5-14.5); WBC 7.4 10x3/uL (4.8-10.8)
[2018-06-22 06:36] LABS: CALCIUM 8.1 mg/dL (8.5-10.1); CARBON DIOXIDE 22.7 mmol/L (21.0-32.0); CHLORIDE - SERUM 107 mmol/L (98-107); GLUCOSE 113 mg/dL (74-106); POTASSIUM - SERUM 3.9 mmol/L (3.5-5.1); SODIUM 140 mmol/L (136-145); eGFR NON AFRICAN AMERICAN 79 mL/min (90-120)
[2018-06-22 06:37] LABS: CALC OSMOLALITY 279 mosm/kg (275-300); UREA NITROGEN 12 mg/dL (7-18)
[2018-06-22 08:48] VITALS: BP 141/73
[2018-06-22 12:16] VITALS: BMI 19.0
[2018-06-22 12:21] VITALS: BP 120/74
[2018-06-22 15:09] LABS: APTT 25.9 SECONDS (22.8-39.4); INR 1.13 (0.85-1.17); PROTIME 14.1 SECONDS (11.6-15.0)
[2018-06-22 16:56] VITALS: BP 144/79
[2018-06-22 23:12] VITALS: BP 141/77
[2018-06-23 02:38] VITALS: BP 125/69
[2018-06-23 04:46] LABS: BASOPHILS 0.2 % (0-2); EOSINOPHILS 5.6 % (0-7); HEMATOCRIT 32.4 % (42.0-54.0); HEMOGLOBIN 11.2 g/dL (13.5-17.5); IMMATURE GRANULOCYTES 0.2 % (0-5); LYMPHOCYTES 8.2 % (15-50); MCH 29.9 pg (26.0-34.0); MCHC 34.6 g/dL (31.0-37.0); MCV 86.4 fL (80.0-100.0); NEUTROPHILS 73.8 % (40-80); PLATELET COUNT 188 10x3/uL (130-400); RBC 3.75 10x6/uL (4.20-6.10); RDW 13.5 % (11.5-14.5); WBC 8.7 10x3/uL (4.8-10.8)
[2018-06-23 04:54] LABS: CALC OSMOLALITY 281 mosm/kg (275-300); CARBON DIOXIDE 23.7 mmol/L (21.0-32.0); CHLORIDE - SERUM 107 mmol/L (98-107); GLUCOSE 133 mg/dL (74-106); POTASSIUM - SERUM 4.2 mmol/L (3.5-5.1); SODIUM 141 mmol/L (136-145); UREA NITROGEN 11 mg/dL (7-18); eGFR NON AFRICAN AMERICAN 79 mL/min (90-120)
[2018-06-23 06:07] VITALS: BP 125/71
[2018-06-23 08:00] VITALS: BP 133/68
[2018-06-23 17:55] VITALS: Ht 188 cm; Wt 68.8 kg
[2018-06-23 20:00] VITALS: BP 147/83
[2018-06-24] VITALS: BP 127/67
[2018-06-24 04:00] VITALS: BP 152/82
[2018-06-24 06:01] LABS: BASOPHILS 0.5 % (0-2); EOSINOPHILS 8.7 % (0-7); HEMATOCRIT 31.1 % (42.0-54.0); HEMOGLOBIN 10.6 g/dL (13.5-17.5); IMMATURE GRANULOCYTES 0.4 % (0-5); LYMPHOCYTES 8.6 % (15-50); MCH 29.4 pg (26.0-34.0); MCHC 34.1 g/dL (31.0-37.0); MCV 86.1 fL (80.0-100.0); MEAN PLATELET VOLUME 9.5 fL (7.4-10.4); NEUTROPHILS 71.8 % (40-80); RBC 3.61 10x6/uL (4.20-6.10); RDW 13.2 % (11.5-14.5); WBC 8.2 10x3/uL (4.8-10.8)
[2018-06-24 06:09] LABS: PLATELET COUNT 296 10x3/uL (130-400)
[2018-06-24 06:18] LABS: CALC OSMOLALITY 284 mosm/kg (275-300); CALCIUM 7.9 mg/dL (8.5-10.1); CARBON DIOXIDE 24.5 mmol/L (21.0-32.0); CHLORIDE - SERUM 108 mmol/L (98-107); GLUCOSE 125 mg/dL (74-106); POTASSIUM - SERUM 3.7 mmol/L (3.5-5.1); SODIUM 143 mmol/L (136-145); UREA NITROGEN 10 mg/dL (7-18); eGFR NON AFRICAN AMERICAN 79 mL/min (90-120)
[2018-06-24 08:39] VITALS: BP 136/76
[2018-06-24 10:42] VITALS: BP 163/70
[2018-06-24 20:00] VITALS: BP 126/65
[2018-06-25] VITALS: BP 130/67
[2018-06-25 04:00] VITALS: BP 146/72
[2018-06-25 07:10] LABS: BASOPHILS 0.6 % (0-2); EOSINOPHILS 11.3 % (0-7); HEMATOCRIT 30.1 % (42.0-54.0); IMMATURE GRANULOCYTES 0.5 % (0-5); LYMPHOCYTES 11.9 % (15-50); MCH 29.4 pg (26.0-34.0); MCHC 33.2 g/dL (31.0-37.0); MONOCYTES 9.9 % (2-11); NEUTROPHILS 65.8 % (40-80); PLATELET COUNT 268 10x3/uL (130-400); RDW 13.4 % (11.5-14.5); WBC 6.5 10x3/uL (4.8-10.8)
[2018-06-25 07:11] LABS: MCV 88.5 fL (80.0-100.0)
[2018-06-25 07:36] LABS: CALC OSMOLALITY 283 mosm/kg (275-300); CALCIUM 7.8 mg/dL (8.5-10.1); CARBON DIOXIDE 20.1 mmol/L (21.0-32.0); CHLORIDE - SERUM 110 mmol/L (98-107); GLUCOSE 100 mg/dL (74-106); POTASSIUM - SERUM 3.5 mmol/L (3.5-5.1); SODIUM 143 mmol/L (136-145); UREA NITROGEN 10 mg/dL (7-18); eGFR NON AFRICAN AMERICAN 79 mL/min (90-120)
[2018-06-25 08:34] VITALS: BP 134/73
[2018-06-25 12:12] VITALS: BP 124/71
[2018-06-25 15:14] VITALS: BP 149/74
[2018-06-25 20:00] VITALS: BP 144/70
[2018-06-26] VITALS: BP 149/73
[2018-06-26 04:00] VITALS: BP 130/64
[2018-06-26 06:41] LABS: CALC OSMOLALITY 286 mosm/kg (275-300); CALCIUM 7.7 mg/dL (8.5-10.1); CARBON DIOXIDE 21.4 mmol/L (21.0-32.0); CHLORIDE - SERUM 110 mmol/L (98-107); GLUCOSE 101 mg/dL (74-106); POTASSIUM - SERUM 3.4 mmol/L (3.5-5.1); SODIUM 145 mmol/L (136-145); eGFR NON AFRICAN AMERICAN 79 mL/min (90-120)
[2018-06-26 06:42] LABS: UREA NITROGEN 7 mg/dL (7-18)
[2018-06-26 07:06] LABS: BASOPHILS 0.6 % (0-2); EOSINOPHILS 9.9 % (0-7); HEMATOCRIT 29.8 % (42.0-54.0); HEMOGLOBIN 9.8 g/dL (13.5-17.5); IMMATURE GRANULOCYTES 0.3 % (0-5); LYMPHOCYTES 11.6 % (15-50); MCH 29.3 pg (26.0-34.0); MCHC 32.9 g/dL (31.0-37.0); MEAN PLATELET VOLUME 10.5 fL (7.4-10.4); MONOCYTES 8.7 % (2-11); NEUTROPHILS 68.9 % (40-80); RBC 3.35 10x6/uL (4.20-6.10); RDW 13.5 % (11.5-14.5); WBC 7.3 10x3/uL (4.8-10.8)
[2018-06-26 07:29] LABS: PLATELET COUNT 335 10x3/uL (130-400)
[2018-06-26 09:54] VITALS: BP 141/79
[2018-06-26 11:39] VITALS: BP 155/76
[2018-06-26] MEDS ORDERED: PROSCAR5 MG PO (12:18)
== END 2018-06-26 14:44 | disposition home health service (06) | DRG 709 ==
LOC: D.MS 23:50 → D.M2 06-20 00:15
PROVIDERS: Internal Medicine Nephrology; Surgery
PROC: 0VBSXZX Excision of Penis, External Approach, Diagnostic (ICD-10-PCS; principal; 2018-06-24 12:56)
DX: C60.9 Malignant neoplasm of penis, unspecified (principal); N17.9 Acute kidney failure, unspecified; N13.8 Other obstructive and reflux uropathy; N13.30 Unspecified hydronephrosis; N13.1 Hydronephrosis with ureteral stricture, not elsewhere classified; N40.1 Benign prostatic hyperplasia with lower urinary tract symptoms; R39.12 Poor urinary stream; D64.9 Anemia, unspecified; F41.9 Anxiety disorder, unspecified; E87.5 Hyperkalemia; N48.29 Other inflammatory disorders of penis; Z87.891 Personal history of nicotine dependence

== ENCOUNTER 2018-08-10 05:18 | Day surgery (SDC) | payer MEDICARE ==
[~2018-08-10] VITALS: Ht 185.4 cm; Wt 68.2 kg
--- NOTE | ~2018-08-10 | OP ---
PATIENT NAME: LYNN LOPEZ MEDICAL RECORD: [id number] :[birth year] [facility] AD[facility] DATE: SURGEON: JOSSIE ZIEGLER MD DATE OF OPERATION: 08/10/2018 SURGEON: Jossie Ziegler MD ANESTHESIA: General anesthesia by Constantin Escamilla CRNA. DIAGNOSES: 1. Squamous cell carcinoma of the penis. 2. 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 3. Scabies. PROCEDURE: Cystoscopy and placement of UroLift devices times 4 and partial penile amputation. FINDINGS: Fungating mass on the dorsal penis about 4 cm in size. On cystoscopy, no urethral tumor. Irregular obstructive prostate. Lateral lobes. No bladder tumors. On frozen section, margin of resection is clear of tumor. BLOOD LOSS: Minimal. CLINICAL HISTORY: This is a 68-year-old male, who was referred by Dr. Sifuentes for chief complaint of a penile lesion, which may be penile cancer. Dr. Sifuentes performed an excisional biopsy. The specimen was sent to [facility] and it came back as probable high-grade squamous cell carcinoma. Wound swabs came back positive for Pseudomonas, sensitive to Cipro. He has been on Cipro for a month to try to clear up the ongoing infection. He has previously had colon cancer and been treated with a colon resection and he has a permanent colostomy in the left lower quadrant. The general surgeon also performed bilateral inguinal lymphadenectomy at that time because the patient had persistent lymphadenopathy in the inguinal region. Therefore, he does not have any palpable inguinal or medial thigh lymphadenopathy. He initially presented to [place], [place] in urinary retention with renal failure. He was also complaining of hematuria. Dr. Sifuentes saw him as I was away. An indwelling Griffith catheter was placed and this resolved his renal failure. CT scan showed bilateral hydronephrosis with an enlarged prostate. No pelvic lymphadenopathy was seen. He is a smoker, 1 pack per day for 20 years and he quit 5 years ago. He now smokes marijuana. He has a past medical history of diabetes mellitus, gonorrhea, and genital warts in the past. 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 Because of his pathology, I did mention that he will require a penile amputation. He was very worried about having at least some stump in order to be able to stand to void. I did explain to him that if we could not leave at least 3 cm of stump that we would have to give him a perineal urethrostomy in order for him to void. He was very upset about this initially and he delayed having surgery, but eventually he agreed to have the procedure done. He was given Ancef and Levaquin senior health consultant to the OR. He is not allergic to any medications. DESCRIPTION OF PROCEDURE: The patient was placed in dorsal lithotomy position. He was prepped and draped. The penile lesion was photographed. We then placed a condom over the penile lesion. The open end of the condom was sutured to the OPERATIVE REPORT [id number] JOHNLYNN SAMEER penile skin using 3-0 silk sutures so that the condom would not unravel during the course of the procedure. The distal end of the condom was cut off. This allowed access to the urethra. The ventral surface of the penis is actually free of tumor. We then placed the UroLift cystoscope in. The penile urethra was free of any tumor. There are no strictures. Going into the prostate, he has a vascular lumpy nodular prostate. Lateral lobes are obstructive. Going into the bladder, no bladder tumors were seen, although the visualization was difficult due to bleeding from the vascularity of the prostate. The UroLift device was then introduced in the bladder and the scope was turned laterally. About 1.5 cm distal to the bladder neck, the UroLift device was fired into the lateral lobe. We then removed the device little bit more cranially until we could see a light reflection and then the suture was cut and the internal urethral clip was applied. This was done on each lateral lobe near the bladder neck. The verumontanum was not that clearly defined, but we took the distal portion of the prostatic urethra. Just proximal to where the verumontanum should be, we applied 2 more UroLift devices on the anterior lateral lobe of the prostate. At the end of the procedure, he had a good voiding channel. We then removed the scope and proceeded with the penile amputation. He had measurements obtained. 2 cm were margined, would leave 4 cm from the pubis for a penile stump. Therefore, we could proceed with a partial penectomy. The line of resection was marked on the penile skin using a marking pen. A #10 blade was used to make the circumcising incision. We did place a 14-Kyrgyz red rubber catheter around the base of the penis and used that as a tourniquet. Also, prior to applying a tourniquet, I gave 2% lidocaine without epinephrine as a dorsal penile nerve block. Once the circumcising incision was made, I began to dissect Gil's fascia to separate the urethra from the corpus cavernosum. I dissected the urethra as distally as possible without getting into the region of the tumor. A #10 scalpel blade was then used to amputate the 2 corpora cavernosa. This was done down to near the level of the corpus spongiosum with the urethra. Metzenbaum scissors were then used to dissect the corpus spongiosum away from the undersurface of the corpus cavernosum until we had at least 1 cm of distal ureteral length from the amputation site of the corpus cavernosum. The corpus spongiosum was then amputated using #10 blade. The specimen was sent to pathology for frozen section to check the margins. Dr. Quiroz reported that the margins were free of cancer. Therefore, we proceeded with our reconstruction. The dorsal neurovascular bundle was suture ligated using 5-0 Monocryl. The corpus cavernosa were reapproximated using 2-0 Vicryl in running fashion. The dorsal urethra was spatulated for a distance of at least 5-6 mm. The tourniquet was then released and no active bleeding was seen. We then started closing the penile skin to itself to cover the cut ends of the corpora cavernosa. On the ventral surface, we had actually lost a bit more skin and therefore, I reapproximated the ventral skin in the midline and then started suturing the cut skin edge to the cut edge of the corpus spongiosum and urethra. We used a 4-0 Monocryl for these sutures. A running closure was done. At the end of procedure, the patient had a 16-Kyrgyz Griffith catheter inserted through the corpus spongiosum. This will drain the bladder until the penis is healed. A dressing of Vaseline gauze was applied around along with fluffs and mesh panties. The patient does have scabies skin infection. He will be getting Permethrin cream on the aviles. TRANSINT:[id number] Voice Confirmation ID: [id number] DOCUMENT ID: [id number] OPERATIVE REPORT [id number] LYNN LOPEZ, JOSSIE Brown MD at 9453 CC: [id number] DICTATION DATE: 08/10/18 1041 PROCUREMENT INTERN: 08/10/18 1303 [facility] [address] [place] [id number]
[~2018-08-10 05:18] MED LIST: DILAUDID2 MG PO; IBUPROFEN200 MG PO; METFORMIN HCL500 M1 PO; NORCO 7.5/325 T1 TA1; PROSCAR5 MG PO; VALIUM 2 MG TAB2 MG PO
[2018-08-10 05:39] LABS: BASOPHILS 0.6 % (0-2); EOSINOPHILS 8.8 % (0-7); HEMOGLOBIN 11.3 g/dL (13.5-17.5); IMMATURE GRANULOCYTES 0.2 % (0-5); LYMPHOCYTES 11.6 % (15-50); MCH 29.3 pg (26.0-34.0); MCHC 33.2 g/dL (31.0-37.0); MCV 88.1 fL (80.0-100.0); MEAN PLATELET VOLUME 10.2 fL (7.4-10.4); MONOCYTES 11.1 % (2-11); NEUTROPHILS 67.7 % (40-80); PLATELET COUNT 308 10x3/uL (130-400); RBC 3.86 10x6/uL (4.20-6.10); WBC 6.2 10x3/uL (4.8-10.8)
[2018-08-10 06:11] VITALS: BP 129/70; BMI 19.9
[2018-08-10 06:21] LABS: APTT 26.9 SECONDS (22.8-39.4); INR 1.01 (0.85-1.17); PROTIME 12.8 SECONDS (11.6-15.0)
[2018-08-10 06:30] LABS: CALC OSMOLALITY 283 mosm/kg (275-300); CALCIUM 8.6 mg/dL (8.5-10.1); CARBON DIOXIDE 25.9 mmol/L (21.0-32.0); CHLORIDE - SERUM 106 mmol/L (98-107); CREATININE - SERUM 0.9 mg/dL (0.6-1.3); GLUCOSE 128 mg/dL (74-106); SODIUM 141 mmol/L (136-145); UREA NITROGEN 14 mg/dL (7-18); eGFR NON AFRICAN AMERICAN 90 mL/min (90-120)
[2018-08-10 21:55] VITALS: BP 113/61
[2018-08-11 04:55] VITALS: Ht 185.4 cm; Wt 68.2 kg
[2018-08-11 05:48] VITALS: BP 121/59
[2018-08-11 08:17] VITALS: BP 122/56
[2018-08-11 12:17] VITALS: BP 118/68
[2018-08-11] MEDS ORDERED: OXYBUTYNIN CHLOR5 MG PO (16:22)
== END 2018-08-11 17:31 | disposition home or self-care (01) ==
LOC: D.OPS 05:18 → D.MS 05:18 → D.PAN 07:30 → D.OPS 10:15 → D.PAN 10:45 → D.MS 15:45 → D.OPS 08-11 17:31
PROVIDERS: Anesthesiology
DX: C60.8 Malignant neoplasm of overlapping sites of penis (principal); N40.1 Benign prostatic hyperplasia with lower urinary tract symptoms; N13.8 Other obstructive and reflux uropathy; R33.8 Other retention of urine; B86 Scabies; Z90.49 Acquired absence of other specified parts of digestive tract; Z85.038 Personal history of other malignant neoplasm of large intestine; Z93.3 Colostomy status; E11.9 Type 2 diabetes mellitus without complications; F12.90 Cannabis use, unspecified, uncomplicated; Z87.891 Personal history of nicotine dependence; Z01.812 Encounter for preprocedural laboratory examination
CPT/HCPCS: 54120; C9740

== ENCOUNTER → 2018-08-25 13:21 | Outpatient (CLI) | payer MEDICARE ==
[2018-08-11 04:55] VITALS: BMI 19.8
[~2018-08-25 13:21] MED LIST changes: +OXYBUTYNIN CHLOR5 MG PO
== END | disposition home or self-care (01) ==
LOC: D.LABREF 13:21
DX: N39.0 Urinary tract infection, site not specified (principal)

== ENCOUNTER → 2018-10-27 12:21 | Outpatient (CLI) | payer MEDICARE ==
[2018-08-11 04:55] VITALS: BMI 19.8
== END | disposition home or self-care (01) ==
LOC: D.LAB 12:21
DX: R31.9 Hematuria, unspecified (principal)

== ENCOUNTER → 2018-10-27 18:25 | Outpatient (CLI) | payer MEDICARE ==
[2018-08-11 04:55] VITALS: BMI 19.8
== END | disposition home or self-care (01) ==
LOC: D.LABREF 18:25
DX: R31.9 Hematuria, unspecified (principal)

== ENCOUNTER → 2018-11-06 12:45 | Outpatient (CLI) | payer MEDICARE ==
[2018-08-11 04:55] VITALS: BMI 19.8
== END | disposition home or self-care (01) ==
LOC: D.CT 12:45
DX: R31.0 Gross hematuria (principal)

== ENCOUNTER 2018-11-24 21:22 | Inpatient (IN) | payer MEDICARE ==
[~2018-11-24] VITALS: Ht 185.4 cm; Wt 64.6 kg
[2018-11-24 22:22] LABS: BASOPHILS 0.3 % (0-2); EOSINOPHILS 10.1 % (0-7); HEMATOCRIT 25.6 % (42.0-54.0); HEMOGLOBIN 8.3 g/dL (13.5-17.5); IMMATURE GRANULOCYTES 0.2 % (0-5); LYMPHOCYTES 12.1 % (15-50); MCH 27.4 pg (26.0-34.0); MCHC 32.4 g/dL (31.0-37.0); MCV 84.5 fL (80.0-100.0); MEAN PLATELET VOLUME 10.5 fL (7.4-10.4); MONOCYTES 10.4 % (2-11); NEUTROPHILS 66.9 % (40-80); PLATELET COUNT 290 10x3/uL (130-400); RBC 3.03 10x6/uL (4.20-6.10); RDW 15.9 % (11.5-14.5); WBC 5.8 10x3/uL (4.8-10.8)
[2018-11-24 22:37] LABS: ALBUMIN 3.1 g/dL (3.4-5.0); ANION GAP 22.9 mmol/L (8-16); BILIRUBIN - TOTAL 0.32 mg/dL (0.2-1.3); CALCIUM 8.3 mg/dL (8.5-10.1); CARBON DIOXIDE 17.5 mmol/L (21.0-32.0); CREATININE - SERUM 12.7 mg/dL (0.6-1.3); MAGNESIUM - SERUM 1.8 mg/dL (1.8-2.4); POTASSIUM - SERUM 5.4 mmol/L (3.5-5.1); PROTEIN - SERUM 7.1 g/dL (6.4-8.2)
--- NOTE | 2018-11-24 22:39 | NUR ---
PT ARRIVED TO FLOOR BY BED, REPORT TAKEN FROM SYED KEN RN. VITALS STABLE. PT ANSWERS QUESTIONS APPROPRIATELY. DENIES FURTHER NEEDS AT THIS TIME. CALL LIGHT IN REACH. WILL CTM.
[2018-11-24] MEDS ORDERED: HYDROCODON-ACE1 EAC7 PO (22:42)
[2018-11-24] MEDS ORDERED: GLUCOPHAGE1000 MG PO (22:43)
--- NOTE | 2018-11-25 01:45 | NUR ---
ADMIT ASSESSMENT COMPLETE. PT IS AAO, UP AD REBA. PT HAS A RED, RAISED/ SMOOTH DRY RASH FROM NECK TO ANKLES. BRUISING NOTED ON NECK. SCABS NOTED ON LEFT AND RIGHT LEG. SOME DEPENDENT EDEMA NOTED ON ELBOW AND KNEES. PT HEART SOUNDS RRR LUNGS HAVE WHEEZES INHALE AND EXHALE. LEFT LOWER QUAD COLOSTOMY NOTED. REYNA WITH BLOODY URINE NOTED, PT HAD ON ARRIVAL, OTHER HOSPITAL IN [place] PLACED REYNA, PT STATES FOR ACCURATE I'S AND O'S. PT HAS A RIGHT AC 20G WITH D5 INFUSING ORDERED. BEDLOW AND CALL LIGHT IN REACH. WILL CPOC
[2018-11-25 02:01] VITALS: BP 126/69; BMI 19.8
[2018-11-25 04:00] VITALS: BP 142/76
[2018-11-25 08:18] VITALS: BP 129/80
[2018-11-25 12:24] LABS: % SATURATION 10 % (15-55); IRON 29 ug/dl (35-150); TOTAL IRON BIND CAPACITY 281 ug/dl (260-445); UNSAT IRON BIND CAPACITY 252 ug/dl (150-375)
[2018-11-25 12:32] VITALS: BP 145/51
[2018-11-25 13:18] LABS: ANION GAP 19.2 mmol/L (8-16); CALCIUM 8.3 mg/dL (8.5-10.1)
[2018-11-25 13:19] LABS: CREATININE - SERUM 6.7 mg/dL (0.6-1.3)
[2018-11-25 13:21] LABS: POTASSIUM - SERUM 6.2 mmol/L (3.5-5.1)
[2018-11-25 15:57] LABS: APPEARANCE HAZY (CLEAR); BILIRUBIN NEGATIVE (NEGATIVE); COLOR RED (YELLOW); GLUCOSE NEGATIVE (NEGATIVE); KETONE NEGATIVE (NEGATIVE); NITRITE NEGATIVE (NEGATIVE); PROTEIN 1+ mg/dL (NEGATIVE); SPECIFIC GRAVITY 1.015 (1.005-1.020); UDS - AMPHET NEGATIVE QUAL (NEGATIVE); UDS - BARB NEGATIVE QUAL (NEGATIVE); UDS - BENZO NEGATIVE QUAL (NEGATIVE); UDS - COCAINE NEGATIVE QUAL (NEGATIVE); UDS - OPIATE POSITIVE QUAL (NEGATIVE); UDS - PCP NEGATIVE QUAL (NEGATIVE); UDS - THC POSITIVE QUAL (NEGATIVE); UROBILINOGEN NORMAL (NORMAL)
[2018-11-25 15:58] LABS: RED CELLS - URINE 25-50 /hpf (0-5); WHITE CELLS - URINE 0-5 /hpf (0-5)
[2018-11-25 15:59] VITALS: BP 124/68
[2018-11-25 15:59] LABS: BACTERIA FEW /hpf (NONE SEEN)
[2018-11-25 18:28] VITALS: BMI 19.7
[2018-11-25 18:39] LABS: CALCIUM 8.2 mg/dL (8.5-10.1); CREATININE - SERUM 5.4 mg/dL (0.6-1.3)
[2018-11-25 18:40] LABS: ANION GAP 15.9 mmol/L (8-16); CARBON DIOXIDE 23.3 mmol/L (21.0-32.0); POTASSIUM - SERUM 5.2 mmol/L (3.5-5.1)
[2018-11-25 20:00] VITALS: BP 149/84
--- NOTE | 2018-11-25 20:37 | NUR ---
IV RESITED IN LEFT FOREARM 22 GAUGE, ONE ATTEMPT MADE. DATED ACCORDING TO FACILITY PROTOCOL. ORDERED CALCIUM GLUCONATE INFUSING ORDERED. NO S/S OF DISTRESS NOTED. WILL CTM.
[2018-11-26] VITALS: BP 96/70
--- NOTE | 2018-11-26 03:09 | NUR ---
PT SITTING UP IN BED WITH EYES OPEN, RR EVEN AND UNLABORED. FLUIDS RUNNING ORDERED. 1000 MLS DARK RED OUTPUT EMPTIED FROM REYNA. BED IN LOW POSITION. PT DENIES FURTHER NEEDS AT THIS TIME. 74 NORMAL SINUS ON TELEMETRY. CALL LIGHT IN REACH. WILL CTM.
[2018-11-26 04:00] VITALS: BP 122/70
[2018-11-26 04:56] LABS: BASOPHILS 0.3 % (0-2); HEMATOCRIT 30.7 % (42.0-54.0); HEMOGLOBIN 9.9 g/dL (13.5-17.5); IMMATURE GRANULOCYTES 0.3 % (0-5); LYMPHOCYTES 7.1 % (15-50); MCH 27.7 pg (26.0-34.0); MCHC 32.2 g/dL (31.0-37.0); MCV 85.8 fL (80.0-100.0); MEAN PLATELET VOLUME 10.5 fL (7.4-10.4); MONOCYTES 12.1 % (2-11); NEUTROPHILS 73.2 % (40-80); RBC 3.58 10x6/uL (4.20-6.10); RDW 15.5 % (11.5-14.5); WBC 6.5 10x3/uL (4.8-10.8)
[2018-11-26 04:57] LABS: PLATELET COUNT 352 10x3/uL (130-400)
[2018-11-26 05:11] LABS: CARBON DIOXIDE 23.8 mmol/L (21.0-32.0); POTASSIUM - SERUM 5.8 mmol/L (3.5-5.1)
--- NOTE | 2018-11-26 07:00 | NUR ---
RECEIVED BEDSIDE SHIFT REPORT. ASSUMED CARE OF PATIENT. PATIENT EASILY AROUSED, RESP EVEN AND UNLABORED. CALL LIGHT WITHIN REACH. F/C PATENT. IV FLUIDS INFUSING ORDERED. PATIENT TEMPERATURE IN ROOM ADJUSTED PER HIS REQUEST. DENIES NEEDS AT THIS TIME. NO DISTRESS.
[2018-11-26 09:00] VITALS: BP 121/79
--- NOTE | 2018-11-26 10:59 | NUR ---
FSBS 138. INSULIN AND DEXTROSE PUSHED VIA IV ROUTE ORDERED.
--- NOTE | 2018-11-26 12:04 | NUR ---
QUESTIONED ALICIA FROM PHARMACY ABOUT PATIENT CALCIUM GLUCONATE, IT IS STILL NOT AVAILABLE ON THE UNIT. SHE STATES SHE WILL LOOK FOR IT, SHE SAID SHE PUT IT TOGETHER BUT DOESN'T KNOW WHERE IT IS.
[2018-11-26 12:41] VITALS: BP 128/65
--- NOTE | 2018-11-26 13:36 | NUR ---
SHOWER COMPLETE, FRESH LINENS PROVIDED. RESTING WITH EYES CLOSED AT THIS TIME. FINALLY RECEIVED CALCIUM GLUCONATE FROM PHARMACY. NO DISTRESS.
--- NOTE | 2018-11-26 15:42 | NUR ---
DERMATOLOGY CONSULT FROM TED MEZA. SHE WROTE ORDERS AND SAW THE PATIENT. THESE ORDERS ARE ON THE CHART. TED ASKED IF I.T. WAS HERE TODAY HER PASSWORD AND ID ARE .
[2018-11-26 16:25] VITALS: BP 113/57
--- NOTE | 2018-11-26 16:51 | NUR ---
FSBS 231. 4 UNITS ADMINISTERED ORDERED. PATIENT UPSET THAT INSULIN HAS BEEN ORDERED AND NOW READY TO GO HOME. PATIENT DEMEANOR HAS CHANGED. EXPLAINED RISK/BENEFITS OF INSULIN AND THE NEED TO CONTROL GLUCOSE LEVEL.
--- NOTE | 2018-11-26 18:04 | NUR ---
MEDICATED FOR PAIN AT THIS TIME. NO DISTRESS.
--- NOTE | 2018-11-26 19:18 | NUR ---
EVENING ROUNDS COMPLETED. REPORT RECEIVED. PT SITTING UP IN BED WITH EYES CLOSED, RR EVEN AND UNLABORED. 105 SINUS TACH ON TELEMETRY. NO S/S OF DISTRESS NOTED. BED IN LOW POSITION. CALL LIGHT IN REACH. WILL CTM.
[2018-11-26 20:26] VITALS: BP 133/66
--- NOTE | 2018-11-26 23:38 | NUR ---
I have reviewed this patient and I concur with the Shift Assessment completed by the Licensed Practical Nurse today this shift.
[2018-11-27 01:37] VITALS: BP 122/62
[2018-11-27 05:31] VITALS: BP 100/44; BP 115/70
[2018-11-27 06:14] LABS: BASOPHILS 0.5 % (0-2); HEMATOCRIT 29.5 % (42.0-54.0); HEMOGLOBIN 9.5 g/dL (13.5-17.5); IMMATURE GRANULOCYTES 0.3 % (0-5); LYMPHOCYTES 11.4 % (15-50); MCH 27.5 pg (26.0-34.0); MCHC 32.2 g/dL (31.0-37.0); MCV 85.5 fL (80.0-100.0); MEAN PLATELET VOLUME 10.5 fL (7.4-10.4); MONOCYTES 10.9 % (2-11); NEUTROPHILS 64.9 % (40-80); PLATELET COUNT 381 10x3/uL (130-400); RBC 3.45 10x6/uL (4.20-6.10); RDW 15.4 % (11.5-14.5)
[2018-11-27 07:13] LABS: ANION GAP 18.1 mmol/L (8-16); CALCIUM 8.8 mg/dL (8.5-10.1); CARBON DIOXIDE 22.6 mmol/L (21.0-32.0)
[2018-11-27 07:15] LABS: CREATININE - SERUM 2.4 mg/dL (0.6-1.3); POTASSIUM - SERUM 4.7 mmol/L (3.5-5.1)
[2018-11-27 08:23] VITALS: BP 132/66
[2018-11-27 11:52] VITALS: BP 138/71
--- NOTE | 2018-11-27 13:32 | NUR ---
Nutrition follow-up: Diet: Renal ADA with po intake ~75% average of meals Renal function improving per physicians notes Labs reviewed Wt: 150# +BM RDN following.
[2018-11-27 17:17] VITALS: BP 128/57
--- NOTE | 2018-11-27 19:15 | NUR ---
RECEIVED REPORT, WILL ASSUME CARE OF PT, PT WANTING COLOSTOMY CHANGED, WAS CHANGED EARLIER, BUT WOULDNT STICK, I ASSISTED WITH CHANGING, PT DENIES ANY OTHER NEEDS AT THIS TIME, BED IS LOW, SRX2, CALL LIGHT IN REACH, WILL CONTINUE PLAN OF CARE
[2018-11-27 20:00] VITALS: BP 129/72
--- NOTE | 2018-11-27 21:30 | NUR ---
[id number] COVERAGE
[2018-11-28] VITALS (7 sets, daily range): BP systolic 121–138; BP diastolic 72–87
--- NOTE | 2018-11-28 04:47 | NUR ---
I have reviewed this patient and I concur with the Shift Assessment completed by the Licensed Practical Nurse today this shift.
--- NOTE | 2018-11-28 07:00 | NUR ---
RECEIVED BEDSIDE SHIFT REPORT. ASSUMED CARE OF PATIENT. CALL LIGHT WITHIN REACH. PATIENT WITH EYES CLOSED. RESP EVEN AND UNLABOED. RESTING WELL. PATIENT NPO FOR PROCEDURE THIS AM. NO DISTRESS.
[2018-11-28 07:56] LABS: BASOPHILS 0.5 % (0-2); EOSINOPHILS 4.1 % (0-7); HEMATOCRIT 31.2 % (42.0-54.0); HEMOGLOBIN 9.9 g/dL (13.5-17.5); IMMATURE GRANULOCYTES 0.3 % (0-5); LYMPHOCYTES 10.9 % (15-50); MCH 27.3 pg (26.0-34.0); MCHC 31.7 g/dL (31.0-37.0); MCV 86.2 fL (80.0-100.0); MEAN PLATELET VOLUME 11.7 fL (7.4-10.4); MONOCYTES 10.1 % (2-11); NEUTROPHILS 74.1 % (40-80); RBC 3.62 10x6/uL (4.20-6.10); RDW 14.9 % (11.5-14.5)
[2018-11-28 07:57] LABS: PLATELET COUNT 200 10x3/uL (130-400); WBC 7.9 10x3/uL (4.8-10.8)
[2018-11-28 08:09] LABS: ANION GAP 14.7 mmol/L (8-16); CALCIUM 8.8 mg/dL (8.5-10.1); CARBON DIOXIDE 24.9 mmol/L (21.0-32.0); CREATININE - SERUM 1.8 mg/dL (0.6-1.3); POTASSIUM - SERUM 4.6 mmol/L (3.5-5.1)
[2018-11-28 09:21] LABS: FOLATE (FOLIC ACID) - SERUM 15.4 ng/mL (>3.0)
--- NOTE | 2018-11-28 10:35 | NUR ---
SPOKE WITH ANESTHESIA, YOHANA, TO MAKE SURE IT WAS OKAY FOR PATIENT TO HAVE HIS KLONOPIN. KLONOPIN ADMINISTERED AT THIS TIME. PATIENT VERY CRANKY, STATES HE HAS A LIFE AND THE DOCTORS SHOULD NOT MAKE HIM WAIT THIS LONG. PATIENT ALSO UPSET BECAUSE HE CAN NOT EAT THIS AM. NO ACUTE DISTRESS.
--- NOTE | 2018-11-28 11:18 | NUR ---
FSBS 166. NO INSULIN ADMINISTERED PATIENT IS NPO FOR A PROCEDURE TODAY.
--- NOTE | 2018-11-28 11:23 | NUR ---
DILAUDID FELL OFF OF PATIENTS EMAR. SPOKE WITH AND RECEIVED ORDERS TO RESTART DILUADID 0.5MG IV Q4 PRN FOR PAIN.
--- NOTE | 2018-11-28 12:06 | NUR ---
PATIENT DILAUDID FELL OFF EMAR, SPOKE WITH AND RECEIVED ORDERS TO RESTART DILAUDID.
--- NOTE | 2018-11-28 12:11 | NUR ---
MEDICATED FOR PAIN AT THIS TIME. NO DISTRESS.
--- NOTE | 2018-11-28 13:30 | NUR ---
SURGERY CALLED FOR PATIENT TO BE PREOPT. ONLY PREOP MEDICATION ON NOV IS CEFAZOLIN. ANTIBIOTIC INFUSING NOW.
--- NOTE | 2018-11-28 13:45 | NUR ---
PATIENT LEFT VIA BED FOR SURGICAL PROCEDURE AT THIS TIME. NO DISTRESS UPON LEAVING UNIT. ANTIBIOTIC SENT WITH PATIENT BECAUSE HE HAS ONLY RECIEVED ABOUT 5 MINUTES OF THE ABX BEFORE TRANSPORT SHOWED UP TO GET THE PATIENT.
--- NOTE | 2018-11-28 14:48 | NUR ---
PATIENT'S SKIN FOR RED AND RASHY ALL OVER BODY, DR ZIEGLER AWARE AND PATIENT IS BEING TREATED, ALSO CAME WITH REYNA WITH BLOODY OUTPUT, REYNA REINSERTED POST PROCEDURE BY DR ZIEGLER, OUTPUT STILL BLOODY, PROSTATE BIOPSY NOT DONE DUE TO RECTUM HAS BEEN CLOSED, PATIENT HAS COLOSTOMY, JOHNNY.
--- NOTE | 2018-11-28 16:12 | OP ---
PATIENT NAME: LYNN LOPEZ MEDICAL RECORD: [id number] :54 LOCATION:D. D.2132 ADMISSION DATE:11/24/18 SURGEON: FEROZ ZIEGLER MD DATE OF OPERATION: 11/28/2018 SURGEON: Feroz Ziegler MD ANESTHESIA: TIVA by Earl Carreon CRNA. DIAGNOSES: 1. Urinary retention. 2. Elevated PSA of 45. 3. History of rectal cancer. 4. History of penile cancer. PROCEDURE: Cystoscopy. FINDINGS: On cystoscopy, false urethral passage. Prostatic urethra was wide open. No bladder tumors were found. The patient's rectum has been closed off. Thus, the transrectal ultrasound and prostate biopsy is not possible. SPECIMENS: None. BLOOD LOSS: None. CLINICAL HISTORY: This is a 68-year-old male, who lives in [place], [place]. The nearest big town to him is [place]. He has a history of rectal cancer treated with APR and a permanent colostomy. He was also given radiation in the past. Unbeknownst to me until now his anus has been closed off. There appears to be no rectal stump. He came to my attention back in the fall of 2017 when he presented with acute renal failure and with bilateral hydroureteronephrosis. A Griffith catheter was inserted by the nursing staff and his renal function normalized. Eventually, it was discovered that he had a fungating mass on the glans and shaft of his penis. Biopsy showed squamous cell carcinoma and he underwent a partial penectomy. He had a previous inguinal lymph node dissection by his general surgeon in the past, so there were no lymph nodes in the groins to check. At the same time that he had the partial penectomy and also placed 4 UroLift units in order to open up his prostate. He then came back recently through the Emergency Room with urinary retention and acute renal failure just as he did back in the fall of 2017. His creatinine now is up to 12.7. He had a CT scan showing spiculated lung nodules in the base of the lungs. There is also bilateral hydroureteronephrosis and then the large prostate. I measured his PSA and it was close to 45. Therefore, I wanted to get a biopsy of his prostate to check for prostate cancer. With placement of a Griffith catheter, his creatinine is near normal today. He comes in for a prostate biopsy and I will also perform a cystoscopy to try to figure out why he cannot void. He was given TIVA and he is not allergic to any medications. He was given Ancef professor of economics to the OR. DESCRIPTION OF PROCEDURE: The patient was given IV sedation. He was placed in dorsal lithotomy position. His Griffith catheter was removed and he was prepped and draped. I tried to introduce a 21-German cystoscope and it would not pass. I dilated the urethra to 18-German. The 17-German cystoscope could pass with a great deal of difficulty. He may have a false passage from previous Griffith catheter insertion attempts. What is remarkable to me is that the rest of the urethra and the prostatic urethra are actually wide open. Going into the OPERATIVE REPORT [id number] LYNN LOPEZ bladder, I do not see any bladder tumors. I then removed the cystoscope. Attempts to place the transrectal ultrasound probe were unsuccessful as I discovered that the anus has been closed off. Therefore, I could not perform a prostate biopsy. A 14-German coude catheter was required to get the Griffith back into the bladder. The bend on the coude helped to avoid the area with the false passage in the urethra. I discussed the situation with Dr. Hernandez. May have prostate cancer, but I have no way to get a tissue diagnosis. We will obtain HIV testing because of his multiple cancers. 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 Dr. Mcgee, the bar steward has seen him in yesterday and would like to work on the theory that it is a drug reaction first and therefore, the patient was given a dose of IM steroids. Besides HIV testing, we will obtain a CT scan of the chest and a bone scan of the whole body. TRANSINT:[id number] Voice Confirmation ID: [id number] DOCUMENT ID: [id number] FEROZ ZIEGLER MD at 1612 CC: [id number] DICTATION DATE: 11/28/18 1507 AVAYA ENGINEER: 11/28/18 1601 ADM IN [facility] [address] [place] [address]
--- NOTE | 2018-11-28 16:52 | NUR ---
FSBS 163. PATIENT REFUSED INSULIN. PATIENT SITTING UP DRINKING JUICE AT THIS TIME.
--- NOTE | 2018-11-28 19:35 | NUR ---
CONFUSED TO SITUATION AT THIS TIME ASSISTED WITH MORE NURISHMENT AND DRINK. BED IS LOW, CALL LIGHT IN REACH, COMPLAINT OF SOME BACK PAIN.
--- NOTE | 2018-11-29 03:52 | NUR ---
I have reviewed this patient and I concur with the Shift Assessment completed by the Licensed Practical Nurse today this shift.
[2018-11-29 05:21] VITALS: BP 138/77
[2018-11-29 06:30] LABS: BASOPHILS 0.3 % (0-2); EOSINOPHILS 6.5 % (0-7); HEMOGLOBIN 8.5 g/dL (13.5-17.5); IMMATURE GRANULOCYTES 0.3 % (0-5); LYMPHOCYTES 8.8 % (15-50); MCH 26.9 pg (26.0-34.0); MCHC 31.5 g/dL (31.0-37.0); MCV 85.4 fL (80.0-100.0); MEAN PLATELET VOLUME 10.5 fL (7.4-10.4); MONOCYTES 9.4 % (2-11); NEUTROPHILS 74.7 % (40-80); RBC 3.16 10x6/uL (4.20-6.10); RDW 14.8 % (11.5-14.5); WBC 6.5 10x3/uL (4.8-10.8)
[2018-11-29 06:45] LABS: PLATELET COUNT 366 10x3/uL (130-400)
[2018-11-29 07:14] LABS: ANION GAP 14.6 mmol/L (8-16); CALCIUM 8.1 mg/dL (8.5-10.1); CARBON DIOXIDE 25.5 mmol/L (21.0-32.0); CREATININE - SERUM 1.6 mg/dL (0.6-1.3); POTASSIUM - SERUM 4.1 mmol/L (3.5-5.1)
--- NOTE | 2018-11-29 09:07 | NUR ---
PT UPSET AND REFUSING SCAN AND PT STATED TO SHANNEN FROM RADIOLOGY HE IS "TIRED IF THE BULLSHIT AND I'M NOT GETTING POKED NO MORE. I WANT ALL THIS STUFF OF OFF ME IM GOING HOME." SHANNEN SPOKE WITH DR. CHAU AND DR. CHAU SPOKE WTIH PT AND PT AGREED TO HAVE SCAN DONE. SHANNEN NOW IN PT'S ROOM GIVING HIM INJECTION.
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
--- NOTE | 2018-11-29 11:40 | NUR ---
CALLED LISA RN NURSE SPIKEMAKING SUPERVISOR ABOUT WHAT PT HAS BEEN SAYIGN SHE STATES TO CALL BATCH UNIT TREATER. SPOKE WITH JUAN J BATCH UNIT TREATER ABOUT THE THREATSA ND WHAT PT HAS BEEN SAYING SHE STATES SHE WILL COME TALK TO PT.
--- NOTE | 2018-11-29 11:43 | NUR ---
PAGED ANTHONY CHIEF DESIGN DRAFTER ABOUT THREATS PT HAS BEEN MAKING.
--- NOTE | 2018-11-29 11:46 | NUR ---
PAGED ANTHONY CANDELARIO AGAIN.
--- NOTE | 2018-11-29 12:08 | NUR ---
SPOKE WITH ANTHONY CANDELARIO ABOUT THREATS PT HAS BEEN MAKING. SHE VRBALIZED UNDERSTANDING.
--- NOTE | 2018-11-29 12:40 | NUR ---
ENGINEERING LAB TECHNICIAN AND LISA NURSE MANAGER ENVIRONMENTAL SERVICES SPOKE WITH PT.
--- NOTE | 2018-11-29 13:29 | NUR ---
PT RETURNED FROM BONE SCAN VIA BED.
--- NOTE | 2018-11-29 14:18 | NUR ---
I have reviewed this patient and I concur with the Shift Assessment completed by the Licensed Practical Nurse today this shift.
[2018-11-29 14:23] VITALS: Ht 185.4 cm; Wt 64.6 kg
[2018-11-29 17:03] VITALS: BP 122/74
--- NOTE | 2018-11-29 19:35 | NUR ---
AWAKE AND AGRY BECAUSE HIS PHONE IS . REFUSSES FULL EXAM AND THREATNING TO LEAVE. BED IS LOW AND SRX2 AND CALL LIGHT IS IN REACH
[2018-11-29 20:57] VITALS: BP 127/68
--- NOTE | 2018-11-29 23:36 | NUR ---
IMEDIATELY AFTER STATING PAIN WAS MUCH BETTER PT NOW COMPLAINS PAIN IS MUCH WORSE
[2018-11-29 23:59] VITALS: BP 117/61
--- NOTE | 2018-11-30 04:49 | NUR ---
I have reviewed this patient and I concur with the Shift Assessment completed by the Licensed Practical Nurse today this shift.
[2018-11-30 05:27] VITALS: BP 105/76
--- NOTE | 2018-11-30 07:49 | NUR ---
ROUNDING DONE WITH PATIENT STATING THAT HE IS GOING HOME TODAY WHETHER HE HAS DC ORDERS OR NOT. ON HEART MONITOR SHOWING SR, HR 90. ON ROOM AIR. D5NS INFUSING TO RIGHT FA AT 75 CC/HR. LEFT HAND PIV SEEN SALINE LOCK. REYNA PATENT. ON EP, REFUSES LAB THIS AM.
[2018-11-30 09:09] VITALS: BP 155/84
--- NOTE | 2018-11-30 09:11 | NUR ---
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
[2018-11-30 09:30] LABS: BASOPHILS 0.5 % (0-2); EOSINOPHILS 4.5 % (0-7); HEMATOCRIT 29.1 % (42.0-54.0); HEMOGLOBIN 9.4 g/dL (13.5-17.5); IMMATURE GRANULOCYTES 0.4 % (0-5); LYMPHOCYTES 10.5 % (15-50); MCH 27.3 pg (26.0-34.0); MCHC 32.3 g/dL (31.0-37.0); MCV 84.6 fL (80.0-100.0); MEAN PLATELET VOLUME 10.2 fL (7.4-10.4); NEUTROPHILS 77.1 % (40-80); RBC 3.44 10x6/uL (4.20-6.10); RDW 14.8 % (11.5-14.5)
[2018-11-30 09:31] LABS: PLATELET COUNT 471 10x3/uL (130-400); WBC 9.3 10x3/uL (4.8-10.8)
[2018-11-30 09:43] LABS: ANION GAP 13.6 mmol/L (8-16); CALCIUM 8.6 mg/dL (8.5-10.1); CARBON DIOXIDE 26.4 mmol/L (21.0-32.0); CREATININE - SERUM 1.6 mg/dL (0.6-1.3)
--- NOTE | 2018-11-30 10:23 | NUR ---
CALL PLACED TO ANTHONY CR APN FOR DISCHARGE ORDERS PATIENT STATES HE IS LEAVING. NEED ORDERS TO REMOVE REYNA CATH AND IV'S. NORCO GIVEN FOR DISCOMFORT TO NECK, BASK, SHOULDERS. PATIENT IS FULLY DRESSED. AWAITING CALL BACK. PATIENT IS REFUSING ASSESSMENT AT THIS TIME. LARGE ICE WATER GIVEN TO PATIENT PER REQUEST.
--- NOTE | 2018-11-30 10:45 | MORECARE ---
CASE MANAGEMENT DISCHARGE SUMMARY PATIENT: LYNN LOPEZ UNIT: [id number] ADM DATE: 11/24/18 AGE: 68 : 52 SEX: M ROOM/BED: D.2132 AUTHOR: EMY BENTON PHYSICIAN: REFERRING PHYSICIAN: BERTO PANG MD DATE OF SERVICE: 11/30/18 Discharge Plan Patient Name: LYNN LOPEZ [facility] [facility] 1950 Planned Disposition: Home Anticipated Discharge Date: 11/30/18 Discharge Date: Expected LOS: 6 Initial Reviewer: [email or web address] Initial Review Date: 11/30/2018 Generated: 11/30/18 11:44 am Coverage Notice Reviewer: [id number] - Leonel Nuñez Notice Issued Date-Time: 11/30/2018 10:10 Notice Type: IM Discharge Notice Notice Delivered To: Patient Relationship to Patient: Sap Portal Consultant Name: Delivery Method: HAND - Hand Delivered Steph Days: Prior Verbal Notification: Recipient Understood Notice: Yes Recipient Signature: Yes Med Rec Note Co-signed by Attending: Coverage Notice Comment: Patient Name: LYNN LOPEZ Page [id number] at 1045 All edits/amendments must be made on the electronic document DICTATION DATE: 11/30/18 104 BENCH HAND: LEORA 11/30/18 1044 RPT#: [id number] DC DATE: STATUS: ADM IN [place] [address] [place] [address] END OF REPORT
[2018-11-30] MEDS ORDERED: KENALOG 0.1 % 115 GM TOPICAL (10:53)
--- NOTE | 2018-11-30 10:54 | MORECARE ---
CASE MANAGEMENT DISCHARGE SUMMARY PATIENT: LYNN LOPEZ UNIT: [id number] ADM DATE: 11/24/18 AGE: 68 : 52 SEX: M ROOM/BED: D.2132 AUTHOR: EMY BENTON PHYSICIAN: REFERRING PHYSICIAN: BERTO PANG MD DATE OF SERVICE: 11/30/18 Discharge Plan Patient Name: LYNN LOPEZ Facility: [facility]:[place] : 1950 Planned Disposition: Home Anticipated Discharge Date: 11/30/18 Discharge Date: Expected LOS: 6 Initial Reviewer: [email or web address] Initial Review Date: 11/30/2018 Generated: 11/30/18 11:54 am DCPIA - Discharge Planning Initial Assessment Updated by [email or web address]: Leonel Nuñez on 11/30/18 10:49 am * Is the patient Alert and Oriented? Yes * How many steps to enter\exit or inside your home? * PCP DR JONES IN [place] * Pharmacy [facility] * Preadmission Environment Home Alone * ADLs Independent * Equipment Cane * Other Equipment NO MEDICAL EQUIPMENT PROVIDER PREFERENCE * List name and contact numbers for known caregivers / representatives who currently or will assist patient after discharge: COLIN LOPEZ, EX SPOUSE, CALEB LOPEZ, SON, * Verbal permission to speak to the caregivers and representatives has been obtained from the patient. N/A * Community resources currently utilized None * Please name any agencies selected above. NONE * Additional services required to return to the preadmission environment? No * Can the patient safely return to the preadmission environment? Yes * Has this patient been hospitalized within the prior 30 days at any hospital? No Coverage Notice Reviewer: [id number] - Leonel Nuñez Notice Issued Date-Time: 11/30/2018 10:10 Notice Type: IM Discharge Notice Notice Delivered To: Patient Relationship to Patient: Vp Of Technology Name: Delivery Method: HAND - Hand Delivered Steph Days: Prior Verbal Notification: Recipient Understood Notice: Yes Recipient Signature: Yes Med Rec Note Co-signed by Attending: Coverage Notice Comment: Last DP export: 11/30/18 9:44 a Patient Name: LYNN LOPEZ Page [phone] at 1054 All edits/amendments must be made on the electronic document DICTATION DATE: 11/30/181053 HEEL LAYER: LEORA 11/30/18 105 RPT#: [id number] DC DATE: STATUS: ADM IN [facility] [address] [place] [address] END OF REPORT
--- NOTE | 2018-11-30 11:13 | MORECARE ---
CASE MANAGEMENT DISCHARGE SUMMARY PATIENT: LYNN LOPEZ UNIT: [id number] ADM DATE: 11/24/18 AGE: 68 : 54 SEX: M ROOM/BED: D.2135 AUTHOR: CHETANDOC PHYSICIAN: REFERRING PHYSICIAN: BERTO PANG MD DATE OF SERVICE: 11/30/18 Discharge Plan Patient Name: LYNN LOPEZ Facility: [facility]:[place] : 1950 Planned Disposition: Home Anticipated Discharge Date: 11/30/18 Discharge Date: Expected LOS: 6 Initial Reviewer: [email or web address] Initial Review Date: 11/30/2018 Generated: 11/30/18 12:13 pm Comments DCP- Discharge Planning Updated by [email or web address]: Leonel Nuñez on 11/30/18 10:[address] Patient Name: LYNN LOPEZ Admission Status: ER Accout number: [id number] Admission Date: 11-24-2018 : 1950 Admission Diagnosis:UNSPECIFIED HYDRONEPHROSIS Attending: BERTO PANG Current LOS: 6 Anticipated DC Date: 11-30-2018 Planned Disposition: Home Primary Insurance: MEDICARE A & B Discharge Planning Comments: CM SPOKE TO BEDSIDE NURSE WHO INFORMED CM THAT PT IS STATING HE IS LEAVING TODAY. CM MET WITH PT IN ROOM TO DISCUSS DISCHARGE PLANNING AND NEEDS. PT IN ROOM AND DRESSED. PT CURSING, USING PROFANITY TO EXPRESS HIMSELF. PT IS PACKING HIS BELONGINGS. PT ASKED FOR A POCKET KNIFE TO CUT THE TUBING OFF OF HIM HE IS LEAVING. CM EXPLAINED THAT NO TUBING NEEDS CUT, THAT THE NURSE WILL REMOVE THE MEDICAL EQUIPMENT WHEN ORDER FROM DOCTOR IS RECEIVED. PT STATES HE WANTS TO LEAVE NOW AND HIS RIDE IS ON THE WAY. CM EXPLAINED THAT A DISCHARGE ORDER WOULD BE NEEDED TO MAKE SURE HIS MEDICATIONS ARE CALLED IN CORRECTLY TO PHARMACY, FOLLOW UP APPOINTMENTS ARE MADE AND INSURANCE WILL CONTINUE TO COVER HIS STAY. PT STATES HE DOES NOT CARE IF HIS STAY IS COVERED, HE HAS NO PLANS TO PAY ANY BILLS AND DOUBTS HE WILL LIVE LONG ENOUGH TO WORRY ABOUT BILLS. PT STATES HE CANNOT GET DILADID AND THAT IS THE ONLY MEDICATION THAT WORKS ON HIS PAIN. CM ASKED WHAT PT GETS AT HOME, PT STATES "NORCO" BUT IT IS USELESS. CM ASKED PT TO PARTICIPATE WITH SCREENING FOR DISCHARGE NEEDS. PT AGREES; PT REPORTS LIVING AT HOME INDEPENDENTLY AND ALONE. PT HAS A CANE WITH NO MEDICAL EQUIPMENT PROVIDER PREFERENCE AND NO OUTSIDE SERVICES ASSISTING IN THE HOME. CM DISCUSSED AVAILABILITY OF HOME HEALTH, REHAB SERVICES AND MEDICAL EQUIPMENT. PT REPORTS HAVING HOME HEALTH IN THE PAST AND FOUND IT TO BE "MODERATELY HELPFUL" BUT DOES NOT NEED IT NOW. PT DENIES DISCHARGE NEEDS, REPORTS HIS NEIGHBOR WILL PICK HIM UP FOR DISCHARGE HOME TODAY HIS SON AND DAUGHTER ARE TOO SORRY TO DO IT. IMPORTANT MESSAGE FROM MEDICARE PROVIDED AND EXPLAINED. CM ASKED PT TO BE PATIENT AND THAT CM WILL PAGE THE NURSE PRACTITIONER TO LET THE DOCTOR KNOW PT WANTS TO LEAVE. PT STATES FOR CM TO DO WHATEVER HE WANTS TO DO. CM PAGED AND SPOKE TO VIPUL CR, NOTIFIED OF PT'S STATEMENTS AND THAT PT IS ANGRY AND WANTS DISCHARGED; CM ALSO EXPRESSED CONCERN THAT THE PT IS BEING RUDE AND GIVING THE BEDSIDE NURSE A HARD TIME. SEMICONDUCTOR WAFER INSPECTOR NOTIFIED CM THAT THE PT WILL HAVE TO WAIT UNTIL THIS AFTERNOON TO BE SEEN BY THE DOCTOR. CM NOTIFIED BEDSIDE NURSE AND PT. PT STATES HE IS NOT WORKING ON THE DOCTORS SCHEDULE AND THAT HIS RIDE IS ON THE WAY NOW AND HE IS LEAVING AT [place] TODAY. CM INFORMED PT THAT CM WILL NOTIFY THE SEMICONDUCTOR WAFER INSPECTOR. PT STATES CM CAN TELL HER ANYTHING HE WANTS. CM EXPLAINED THAT CM WILL TELL THE SEMICONDUCTOR WAFER INSPECTOR WHAT THE PT WANTS TOLD. PT STATES HE WILL BE LEAVING AT [place] WHEN HIS RIDE ARRIVES, IF THE DOCTOR SEE'S HIM OR NOT AND IF HE IS NOT DISCHARGED, HE IS NOT WAITING; PT AGAIN STATES HE DOES NOT CARE IF THE BILL GETS PAID BY INSURANCE HE HAS NO INTENTION OF PAYING ANY BILLS AND MAY NOT LIVE LONG ENOUGH TO EVEN WORRY ABOUT IT. CM PAGED AND NOTIFIED VIPUL CR. PT PLANS TO DISCHARGE TODAY OR LEAVE AGAINST MEDICAL ADVICE WHEN HIS RIDE ARRIVES AT [place] TODAY. Priming Machine Operator: Leonel Nuñez DCPIA - Discharge Planning Initial Assessment Updated by [email or web address]: Leonel Nuñez on 11/30/18 10:49 am * Is the patient Alert and Oriented? Yes * How many steps to enter\\exit or inside your home? * PCP DR JONES IN [place] * Pharmacy [facility] * Preadmission Environment Home Alone * ADLs Independent * Equipment Cane * Other Equipment NO MEDICAL EQUIPMENT PROVIDER PREFERENCE * List name and contact numbers for known caregivers / representatives who currently or will assist patient after discharge: COLIN LOPEZ, EX SPOUSE, CALEB LOPEZ, SON, * Verbal permission to speak to the caregivers and representatives has been obtained from the patient. N/A * Community resources currently utilized None * Please name any agencies selected above. NONE * Additional services required to return to the preadmission environment? No * Can the patient safely return to the preadmission environment? Yes * Has this patient been hospitalized within the prior 30 days at any hospital? No Coverage Notice Reviewer: [id number] Alejandrina Nuñez Notice Issued Date-Time: 11/30/2018 10:10 Notice Type: IM Discharge Notice Notice Delivered To: Patient Relationship to Patient: Plastic Jig And Fixture Builder Name: Delivery Method: HAND - Hand Delivered Steph Days: Prior Verbal Notification: Recipient Understood Notice: Yes Recipient Signature: Yes Med Rec Note Co-signed by Attending: Coverage Notice Comment: Last DP export: 11/30/18 9:54 a Patient Name: LYNN LOPEZ Page [id number] at 1113 All edits/amendments must be made on the electronic document DICTATION DATE: 11/30/181111 YEAST CAKE CUTTER: LEORA 11/30/181111 RPT#: [id number] DC DATE: STATUS: ADM IN [facility] [address] [place] [address] END OF REPORT
--- NOTE | 2018-11-30 11:26 | NUR ---
PATIENT REFUSED TO HAVE HIS VITAL SIGNS AND HIS POC GLUCOSE LEVEL DONE. BILATERAL IV'S ARE REMOVED WITH CATH TIP INTACT.
--- NOTE | 2018-11-30 11:46 | NUR ---
FRIEND IS AT BEDSIDE AT THIS TIME FOR DISCHARGE. I INFORMED HIM THAT WE ARE WAITING FOR DISCHARGE PAPERS.
--- NOTE | 2018-11-30 12:06 | NUR ---
VERBAL AND WRITTEN DISCHARGE INSTRUCTIONS GIVEN TO PATIENT. UNABLE TO RECORD ANY OUTPUT FROM REYNA PATIENT EMPTIED HIS REYNA CATH INTO THE TOLIET. AWAITING WHEELCHAIR FOR DISCHARGE.
--- NOTE | 2018-12-01 07:55 | MORECARE ---
CASE MANAGEMENT DISCHARGE SUMMARY PATIENT: LYNN LOPEZ UNIT: [id number] ADM DATE: 11/24/18 AGE: 68 : 54 SEX: M ROOM/BED: D.2136 AUTHOR: CHETANDOC PHYSICIAN: REFERRING PHYSICIAN: BERTO PANG MD DATE OF SERVICE: 12/01/18 Discharge Plan Patient Name: LYNN LOPEZ Facility: [facility]:Happy : 1950 Planned Disposition: Home Anticipated Discharge Date: 11/30/18 Discharge Date: 11/30/2018 Expected LOS: 6 Initial Reviewer: [id number] Initial Review Date: 11/30/2018 Generated: 12/01/18 8:55 am Comments DCP- Discharge Planning Updated by [email or web address]: Leonel Nuñez on 11/30/18 10:[address] Patient Name: LYNN LOPEZ Admission Status: ER Accout number: [id number] Admission Date: 11-24-2018 : 1950 Admission Diagnosis:UNSPECIFIED HYDRONEPHROSIS Attending: BERTO PANG Current LOS: 6 Anticipated DC Date: 11-30-2018 Planned Disposition: Home Primary Insurance: MEDICARE A & B Discharge Planning Comments: CM SPOKE TO BEDSIDE NURSE WHO INFORMED CM THAT PT IS STATING HE IS LEAVING TODAY. CM MET WITH PT IN ROOM TO DISCUSS DISCHARGE PLANNING AND NEEDS. PT IN ROOM AND DRESSED. PT CURSING, USING PROFANITY TO EXPRESS HIMSELF. PT IS PACKING HIS BELONGINGS. PT ASKED FOR A POCKET KNIFE TO CUT THE TUBING OFF OF HIM HE IS LEAVING. CM EXPLAINED THAT NO TUBING NEEDS CUT, THAT THE NURSE WILL REMOVE THE MEDICAL EQUIPMENT WHEN ORDER FROM DOCTOR IS RECEIVED. PT STATES HE WANTS TO LEAVE NOW AND HIS RIDE IS ON THE WAY. CM EXPLAINED THAT A DISCHARGE ORDER WOULD BE NEEDED TO MAKE SURE HIS MEDICATIONS ARE CALLED IN CORRECTLY TO PHARMACY, FOLLOW UP APPOINTMENTS ARE MADE AND INSURANCE WILL CONTINUE TO COVER HIS STAY. PT STATES HE DOES NOT CARE IF HIS STAY IS COVERED, HE HAS NO PLANS TO PAY ANY BILLS AND DOUBTS HE WILL LIVE LONG ENOUGH TO WORRY ABOUT BILLS. PT STATES HE CANNOT GET DILADID AND THAT IS THE ONLY MEDICATION THAT WORKS ON HIS PAIN. CM ASKED WHAT PT GETS AT HOME, PT STATES "[employer]" BUT IT IS USELESS. CM ASKED PT TO PARTICIPATE WITH SCREENING FOR DISCHARGE NEEDS. PT AGREES; PT REPORTS LIVING AT HOME INDEPENDENTLY AND ALONE. PT HAS A CANE WITH NO MEDICAL EQUIPMENT PROVIDER PREFERENCE AND NO OUTSIDE SERVICES ASSISTING IN THE HOME. CM DISCUSSED AVAILABILITY OF HOME HEALTH, REHAB SERVICES AND MEDICAL EQUIPMENT. PT REPORTS HAVING HOME HEALTH IN THE PAST AND FOUND IT TO BE "MODERATELY HELPFUL" BUT DOES NOT NEED IT NOW. PT DENIES DISCHARGE NEEDS, REPORTS HIS NEIGHBOR WILL PICK HIM UP FOR DISCHARGE HOME TODAY HIS SON AND DAUGHTER ARE TOO SORRY TO DO IT. IMPORTANT MESSAGE FROM MEDICARE PROVIDED AND EXPLAINED. CM ASKED PT TO BE PATIENT AND THAT CM WILL PAGE THE NURSE PRACTITIONER TO LET THE DOCTOR KNOW PT WANTS TO LEAVE. PT STATES FOR CM TO DO WHATEVER HE WANTS TO DO. CM PAGED AND SPOKE TO VIPUL CR, NOTIFIED OF PT'S STATEMENTS AND THAT PT IS ANGRY AND WANTS DISCHARGED; CM ALSO EXPRESSED CONCERN THAT THE PT IS BEING RUDE AND GIVING THE BEDSIDE NURSE A HARD TIME. VIPUL NOTIFIED CM THAT THE PT WILL HAVE TO WAIT UNTIL THIS AFTERNOON TO BE SEEN BY THE DOCTOR. CM NOTIFIED BEDSIDE NURSE AND PT. PT STATES HE IS NOT WORKING ON THE DOCTORS SCHEDULE AND THAT HIS RIDE IS ON THE WAY NOW AND HE IS LEAVING AT [place] TODAY. CM INFORMED PT THAT CM WILL NOTIFY THE ALGEBRA TUTOR. PT STATES CM CAN TELL HER ANYTHING HE WANTS. CM EXPLAINED THAT CM WILL TELL THE ALGEBRA TUTOR WHAT THE PT WANTS TOLD. PT STATES HE WILL BE LEAVING AT [place] WHEN HIS RIDE ARRIVES, IF THE DOCTOR SEE'S HIM OR NOT AND IF HE IS NOT DISCHARGED, HE IS NOT WAITING; PT AGAIN STATES HE DOES NOT CARE IF THE BILL GETS PAID BY INSURANCE HE HAS NO INTENTION OF PAYING ANY BILLS AND MAY NOT LIVE LONG ENOUGH TO EVEN WORRY ABOUT IT. CM PAGED AND NOTIFIED VIPUL CR. PT PLANS TO DISCHARGE TODAY OR LEAVE AGAINST MEDICAL ADVICE WHEN HIS RIDE ARRIVES AT [place] TODAY. [employer] [place]: Leonel Nuñez DCPIA - Discharge Planning Initial Assessment Updated by [email or web address]: Leonel Nuñez on 11/30/18 10:49 am * Is the patient Alert and Oriented? Yes * How many steps to enter\\exit or inside your home? * PCP DR JONES IN [place] * Pharmacy [facility] [address], [place] * Preadmission Environment Home Alone * ADLs Independent * Equipment Cane * Other Equipment NO MEDICAL EQUIPMENT PROVIDER PREFERENCE * List name and contact numbers for known caregivers / representatives who currently or will assist patient after discharge: COLIN LOPEZ, EX SPOUSE, CALEB LOPEZ, SON, * Verbal permission to speak to the caregivers and representatives has been obtained from the patient. N/A * Community resources currently utilized None * Please name any agencies selected above. NONE * Additional services required to return to the preadmission environment? No * Can the patient safely return to the preadmission environment? Yes * Has this patient been hospitalized within the prior 30 days at any hospital? No Coverage Notice Reviewer: [id number] Alejandrina Nuñez Notice Issued Date-Time: 11/30/2018 10:10 Notice Type: IM Discharge Notice Notice Delivered To: Patient Relationship to Patient: Vmware Administrator Name: Delivery Method: HAND - Hand Delivered Steph Days: Prior Verbal Notification: Recipient Understood Notice: Yes Recipient Signature: Yes Med Rec Note Co-signed by Attending: Coverage Notice Comment: Last DP export: 11/30/18 10:13 a Patient Name: LYNN LOPEZ Page [id number] at [id number] All edits/amendments must be made on the electronic document DICTATION DATE: 12/01/18753 COREMAKER BENCH: LEORA 12/01/18753 RPT#: [id number] DC DATE:11/30/18 STATUS: DIS IN [facility] [address] [place] [address] END OF REPORT
== END 2018-11-30 13:07 | disposition home or self-care (01) | DRG 699 ==
LOC: D.ER 21:22 → D.M2 21:38
PROVIDERS: Family Medicine; Internal Medicine; Urology; ADMIT Internal Medicine Nephrology; ATTEND Internal Medicine Nephrology
PROC: 0TJB8ZZ Inspection of Bladder, Via Natural or Artificial Opening Endoscopic (ICD-10-PCS; principal; 2018-11-28 12:50)
DX: N36.5 Urethral false passage (principal); N13.30 Unspecified hydronephrosis; N17.9 Acute kidney failure, unspecified; E87.5 Hyperkalemia; D50.9 Iron deficiency anemia, unspecified; I10 Essential (primary) hypertension; E11.9 Type 2 diabetes mellitus without complications; J44.9 Chronic obstructive pulmonary disease, unspecified; R97.20 Elevated prostate specific antigen [PSA]; Z85.46 Personal history of malignant neoplasm of prostate